=== PATIENT | male | born 1930 | race Caucasian/White ===

== ENCOUNTER 2018-05-03 11:06 | Emergency (ER) | payer MEDICARE ==
[~2018-05-03] VITALS: Ht 177.8 cm; Wt 95.3 kg
--- NOTE | 2018-05-03 11:35 | ED Cardiac General ---
History of Present Illness General Chief Complaint: Elevated BP Stated Complaint: BP 230/170 Nursing Triage Note: Pt arrived by private vehicle with a chief complaint of high blood pressure. Pt noticed that his blood pressure was high around 0600, then went to urgent care. Pt went to urgent care and they took his blood pressure and got 220/110. Pt took his blood pressure medication about one hour ago. At urgent care he complained of dizziness and head pressure. Pt stated that he is currently not in any pain. Source: patient, family Exam Limitations: no limitations History of Present Illness Date Seen by Provider: May 03, 2018 Time Seen by Provider: 11:24 87 y/o M with PMH of HTN presents with complaint of elevated BP. States he took his morning Lisinopril around 0800, at 0600 took BP with a wrist automatic home BP cuff that read high, went to urgent care, was told it was 220/110. He tells me he was asking urgent care if their are any symptoms that people can feel with elevated BP. Says he felt his heart pounding. Denies dizziness, though was told by urgent care sometimes people can have dizziness, headache and vision changes with elevated BP. Patient is currently asymptomatic. [place] that was "normal". Allergies and Home Medications Patient Home Medication List Home Medication List Reviewed: Yes Review of Systems Review of Systems Constitutional: No chills, No fever, No malaise, No weakness EENTM: No Blurred Vision, No Double Vision Respiratory: Denies Cough, Denies Orthopnea, Denies Shortness of Air, Denies SOA With Exertion Cardiovascular: Denies Chest Pain, Denies Edema, Denies Lightheadedness, Denies Palpitations, Denies Syncope Gastrointestinal: Denies Abdominal Pain, Denies Nausea, Denies Vomiting Genitourinary: Denies Flank Pain, Denies Hematuria Musculoskeletal: No back pain, No joint pain, No muscle pain Skin: No lesions, No rash Endocrine: Denies Excessive Sweating, Denies Flushing Past Omxswjl-Wukbzd-Yyecuv Hx Past Med/Social Hx: Reviewed Nursing Past Med/Soc Hx Patient Social History Recent Foreign Travel: No Contact w/Someone Who Travel: No Recent Infectious Disease Expo: No Physical Exam Vital Signs Vital Signs - First Documented 05/03/18 11:15 Temp 98.1 Pulse 68 Resp 18 B/P (MAP) 169/71 (103) Pulse Ox 95 O2 Delivery Room Air Capillary Refill : Less Than 3 Seconds Height, Weight, BMI Height: 5'10.00" Weight: 210lbs. 0oz. 95.595184ce; BMI Method:Stated General Appearance: No Apparent Distress, WD/WN HEENT: PERRL/EOMI, Normal ENT Inspection Neck: Full Range of Motion, Normal Inspection, Non Tender, Supple Respiratory: Chest Non Tender, Lungs Clear, Normal Breath Sounds, No Accessory Muscle Use, No Respiratory Distress Cardiovascular: Regular Rate, Rhythm, No Edema, No Gallop, No JVD, No Murmur, Normal Peripheral Pulses Gastrointestinal: Normal Bowel Sounds, No Organomegaly, No Pulsatile Mass, Non Tender, Soft Rectal: Deferred Extremity: Normal Capillary Refill, Normal Inspection, Normal Range of Motion, Non Tender, No Calf Tenderness, No Pedal Edema Neurologic/Psychiatric: Alert, Oriented x3, No Motor/Sensory Deficits, Normal 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 Recommend close follow up with PCP and Supervisor [employer] as scheduled. Departure Impression Primary Impression: Hypertension Disposition: 01 HOME, SELF-CARE Condition: Improved Departure-Patient Inst. Decision time for Depature: 11:36 Referrals: VENESSA HARRIS MD (PCP/Family) Primary Care Physician Patient Instructions: Malignant Hypertension (DC) Add. Discharge Instructions: All discharge instructions reviewed with patient and/or family. Voiced understanding. VALENTIN ART MD May 03, 2018 11:35
[2018-05-03 12:00] VITALS: BP 147/61
== END 2018-05-03 12:00 | disposition home or self-care (01) ==
LOC: ER FS 11:10
DX: I10 Essential (primary) hypertension (principal)
CPT/HCPCS: 99283

== ENCOUNTER 2018-05-24 12:52 | Emergency (ER) | payer MEDICARE ==
[~2018-05-24] VITALS: Ht 177.8 cm; Wt 95.3 kg
[2018-05-24] MEDS ORDERED: amLODIPine 5 MG (NORVASC) TAB PO ONE (13:15)
[2018-05-24 13:20] LABS: BASOPHILS % (AUTO) 1 % (0-10); EOSINOPHILS % (AUTO) 3 % (0-10); HEMATOCRIT 38 % (40-54); HEMOGLOBIN 12.8 G/DL (13.3-17.7); LYMPHOCYTES % (AUTO) 27 % (12-44); MEAN CORPUSCULAR HEMOGLOBIN 33 PG (25-34); MEAN CORPUSCULAR HGB CONC 34 G/DL (32-36); MEAN CORPUSCULAR VOLUME 96 FL (80-99); MEAN PLATELET VOLUME 9.1 FL (7.4-10.4); MONOCYTES % (AUTO) 13 % (0-12); NEUTROPHILS % (AUTO) 54 % (42-75); PLATELET COUNT 344 10^3/uL (130-400); RED CELL DISTRIBUTION WIDTH 12.9 % (10.0-14.5); WHITE BLOOD COUNT 8.3 10^3/uL (4.3-11.0)
[2018-05-24 13:21] LABS: BASOPHILS # (AUTO) 0.1 10^3/uL (0.0-0.1); EOSINOPHILS # (AUTO) 0.3 10^3/uL (0.0-0.3); LYMPHOCYTES # (AUTO) 2.3 X 10^3 (1.0-4.0); MONOCYTES # (AUTO) 1.1 X 10^3 (0.0-1.0); NEUTROPHILS # (AUTO) 4.5 X 10^3 (1.8-7.8)
--- NOTE | 2018-05-24 13:28 | ED Cardiac General ---
History of Present Illness General Chief Complaint: Cardiac/General Problems Stated Complaint: BP 244/199 Nursing Triage Note: ARRIVED VIA AMB TO ROOM 03. COMPLAINS OF HIGH BP AND HEADACHE SINCE HAVING HIS HEART CATH ON THURSDAY AT [facility]. Source: patient Exam Limitations: no limitations History of Present Illness Date Seen by Provider: May 24, 2018 Time Seen by Provider: 13:03 Initial Comments Here with report of high blood pressure and headache for the last few days. He had a heart catheter on Thursday at [facility] in [place]. No stenting. He had a heart catheter related to the fact that he's been having high blood pressure for the last month or so. Apparently was better but still continues. He has been placed on Ranexa 500 mg twice a day. Denies chest pain or weakness but does have mild headache. Blood pressure is improving since taking his blood pressure medicines but still in the range of 170s over 60s and 70s. Heart rate of 70. Denies nausea , vomiting, weakness or sweating. Timing/Duration: changing over time, other (several weeks) Severity: mild Location: other (mild headache) Activities at Onset: none Prior CP/Workup: cardiac cath, stress test Modifying Factors: improves with rest NTG SL UNDERGROUND DISTRIBUTION ENGINEER: No ASA po UNDERGROUND DISTRIBUTION ENGINEER: Yes Associated Systoms: No Chest Pain, No Cough, No Fever/Chills; Headaches; No Nausea/Vomiting, No Shortness of Air, No Weakness Allergies and Home Medications Allergies Coded Allergies: Sulfa (Sulfonamide Antibiotics) (Verified Allergy, Unknown, 05/24/18) Patient Home Medication List Home Medication List Reviewed: Yes Review of Systems Review of Systems Constitutional: see HPI; No chills, No fever EENTM: No Symptoms Reported Respiratory: Denies Cough, Denies Shortness of Air Cardiovascular: Denies Chest Pain, Denies Palpitations Gastrointestinal: No Symptoms Reported Musculoskeletal: no symptoms reported Skin: no symptoms reported Psychiatric/Neurological: See HPI; Denies Numbness, Denies Weakness All Other Systems Reviewed Negative Unless Noted: Yes Past Ylttltn-Ovmjbu-Cujztv Hx Past Med/Social Hx: Reviewed Nursing Past Med/Soc Hx Patient Social History Alcohol Use: Denies Use Recreational Drug Use: No Smoking Status: Never a Smoker Type Used: Cigarettes 2nd Hand Smoke Exposure: No Recent Foreign Travel: No Contact w/Someone Who Travel: No Recent Infectious Disease Expo: No Recent Hopitalizations: Yes Seasonal Allergies Seasonal Allergies: No Past Medical History Surgeries: Yes Eye Surgery, Gallbladder Respiratory: No Cardiac: Yes Hypertension Neurological: No Sexually Transmitted Disease: No HIV/AIDS: No Genitourinary: No Gastrointestinal: No Abdominal Hernia Musculoskeletal: No Endocrine: No Hypothyroidsim HEENT: No Cancer: No Psychosocial: No Integumentary: No Blood Disorders: No Family Medical History Reviewed Nursing Family Hx Physical Exam Vital Signs Vital Signs - First Documented 05/24/18 12:57 Temp 98.2 Pulse 70 Resp 16 B/P (MAP) 172/78 (109) Pulse Ox 95 O2 Delivery Room Air Capillary Refill : Less Than 3 Seconds Height, Weight, BMI Height: 5'10.00" Weight: 210lbs. 0oz. 95.348376tv; BMI Method:Stated General Appearance: No Apparent Distress, WD/WN HEENT: PERRL/EOMI, Pharynx Normal Neck: Non Tender, Supple Respiratory: Lungs Clear, Normal Breath Sounds Cardiovascular: Regular Rate, Rhythm, No Murmur Gastrointestinal: Non Tender, Soft Extremity: Normal Range of Motion, Non Tender Neurologic/Psychiatric: Alert, Oriented x3 Skin: Normal Color, Warm/Dry Progress/Results/Core Measures Results/Orders Lab Results Laboratory Tests Test 05/24/18 13:12 05/24/18 14:56 Range/Units White Blood Count 8.3 4.3-11.0 10^3/uL Red Blood Count 3.93 L 4.35-5.85 10^6/uL Hemoglobin 12.8 L 13.3-17.7 G/DL Hematocrit 38 L 40-54 % Mean Corpuscular Volume 96 80-99 FL Mean Corpuscular Hemoglobin 33 25-34 PG Mean Corpuscular Hemoglobin Concent 34 32-36 G/DL Red Cell Distribution Width 12.9 10.0-14.5 % Platelet Count 344 130-400 10^3/uL Mean Platelet Volume 9.1 7.4-10.4 FL Neutrophils (%) (Auto) 54 42-75 % Lymphocytes (%) (Auto) 27 12-44 % Monocytes (%) (Auto) 13 H 0-12 % Eosinophils (%) (Auto) 3 0-10 % Basophils (%) (Auto) 1 0-10 % Neutrophils # (Auto) 4.5 1.8-7.8 X 10^3 Lymphocytes # (Auto) 2.3 1.0-4.0 X 10^3 Monocytes # (Auto) 1.1 H 0.0-1.0 X 10^3 Eosinophils # (Auto) 0.3 0.0-0.3 10^3/uL Basophils # (Auto) 0.1 0.0-0.1 10^3/uL Prothrombin Time 13.4 12.2-14.7 SEC INR Comment 1.0 0.8-1.4 Activated Partial Thromboplast Time 29 24-35 SEC Sodium Level 136 135-145 MMOL/L Potassium Level 4.3 3.6-5.0 MMOL/L Chloride Level 101 98-107 MMOL/L Carbon Dioxide Level 23 21-32 MMOL/L Anion Gap 12 5-14 MMOL/L Blood Urea Nitrogen 11 7-18 MG/DL Creatinine 1.16 0.60-1.30 MG/DL Estimat Glomerular Filtration Rate 60 BUN/Creatinine Ratio 9 Glucose Level 107 H 70-105 MG/DL Calcium Level 9.3 8.5-10.1 MG/DL Corrected Calcium 9.1 8.5-10.1 MG/DL Magnesium Level 1.9 1.8-2.4 MG/DL Total Bilirubin 0.5 0.1-1.0 MG/DL Aspartate Amino Transf (AST/SGOT) 19 5-34 U/L Alanine Aminotransferase (ALT/SGPT) 13 0-55 U/L Alkaline Phosphatase 52 40-136 U/L Troponin T 25 H 23 H <=15 NG/L Total Protein 7.3 6.4-8.2 GM/DL Albumin 4.2 3.2-4.5 GM/DL My Orders Orders - JOSE ELIAS MIRANDA MD Amlodipine Tablet (Norvasc Tablet) (05/24/18 13:15) Cbc With Automated Diff (05/24/18 13:11) Magnesium (05/24/18 13:11) Chest 1 View Ap/Pa Only (05/24/18 13:11) Ekg Tracing (05/24/18 13:11) Comprehensive Metabolic Panel (05/24/18 13:11) Protime With Inr (05/24/18 13:11) Partial Thromboplastin Time (05/24/18 13:11) Monitor-Rhythm Ecg Trace Only (05/24/18 13:11) Lipid Panel (05/25/18 06:00) Saline Lock/Iv-Start (05/24/18 13:11) Troponin T (05/24/18 13:11) Myoglobin Serum (05/24/18 13:12) Troponin T (05/24/18 14:53) Medications Given in ED Current Medications Medications Dose Ordered Sig/Mary Route Start Time Stop Time Status Last Admin Dose Admin Amlodipine Besylate 5 mg ONCE ONCE PO 05/24/18 13:15 05/24/18 13:16 DC 05/24/18 13:23 5 MG Vital Signs/I&O 05/24/18 12:57 Temp 98.2 Pulse 70 Resp 16 B/P (MAP) 172/78 (109) Pulse Ox 95 O2 Delivery Room Air Blood Pressure Mean: 109 Progress Progress Note : Progress Note Seen and evaluated. IV, labs, EKG and chest x-ray ordered. Amlodipine 5 mg by mouth ordered. Monitor patient. 1500: Blood pressure is improved to 160s over 60s to 170s over 60s with heart rate in the 60s. I did discuss the case with Dr. 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 Apparently he had heart catheter due to failed stress test and not blood pressure. We did discuss his blood pressure medicines. He is recommending that we increase the lisinopril to 40 mg daily and add clonidine when necessary. We will repeat patient's troponin and monitor for improvement. He is currently symptom and chest pain-free. 1525: We will give clonidine 0.1 mg by mouth now and monitor. Initial ECG Impression Date: May 24, 2018 Initial ECG Impression Time: 13:00 Initial ECG Rate: 71 Initial ECG Rhythm: Normal Sinus Initial ECG Comparisson: No Previous ECG Available Comment Sinus rhythm with normal axis. No evidence of ST elevation ID. No previous available for comparison. Interpreted by me. Diagnostic Imaging Diagonstic Imaging: Xray Plain Films/CT/US/NM/MRI: chest Comments [facility]. [place], [place] NAME: VALENTINJUSTO MED REC#: [id number] PT STATUS: REG ER : 1930 PHYSICIAN: JOSE ELIAS MIRANDA MD ADMIT DATE: 05/24/18/ER FS Draft Date of Exam:05/24/18 CHEST 1 VIEW AP/PA ONLY INDICATION: Hypertension. TECHNIQUE: Single-view chest at 12:19 p.m. CORRELATION STUDY: None. FINDINGS: Large portion of the upper chest is obscured by the patient's head. Heart size is enlarged. Vasculature is within normal limits. Likely tortuous course of thoracic aorta. The visualized lung green appear relatively clear without significant infiltrate. IMPRESSION: 1. Cardiac enlargement without failure. No definitive consolidating infiltrate. Superior chest anatomy obscured by the patient's head. Dictated on workstation # [id number] Dict: 05/24/18 1323 Trans: 05/24/18 1332 [id number] Interpreted by: MARA ORTEGA DO Electronically signed by: Departure Impression Primary Impression: Uncontrolled hypertension Disposition: HOME, SELF-CARE Condition: Improved Departure-Patient Inst. Decision time for Depature: 15:50 Referrals: VENESSA HARRIS MD (PCP/Family) Primary Care Physician Patient Instructions: High Blood Pressure (DC) Add. Discharge Instructions: All discharge instructions reviewed with patient and/or family. Voiced understanding. You should increase her lisinopril to 40 mg daily (4 of the 10 mg tablets once a day). You may take the clonidine 0.1 mg one every 8 hours as needed for persistent blood pressure problems with your systolic number (top number) of 170 or higher. If you do have to take your clonidine, call Dr. Hammonds's office for appointment within the next week. Follow-up with your doctor for recheck and further evaluation within the next week. Return for persistent blood pressure greater than 200 systolic, weakness, chest pain, breathing problems, sweating, nausea or vomiting or other concerns as needed. Continue other medicines as previously prescribed. Scripts Clonidine HCl (Clonidine HCl) 0.1 Mg Tablet 0.1 MG PO Q12H PRN for BLOOD PRESSURE, #15 TAB 0 Refills Prov: JOSE ELIAS MIRANDA MD 05/24/18 JOSE ELIAS MIRANDA MD May 24, 2018 13:28
--- NOTE | 2018-05-24 13:32 | Diagnostic Imaging Report ---
INDICATION: Hypertension. TECHNIQUE: Single-view chest at 12:19 p.m. CORRELATION STUDY: None. FINDINGS: Large portion of the upper chest is obscured by the patient's head. Heart size is enlarged. Vasculature is within normal limits. Likely tortuous course of thoracic aorta. The visualized lung green appear relatively clear without significant infiltrate. IMPRESSION: 1. Cardiac enlargement without failure. No definitive consolidating infiltrate. Superior chest anatomy obscured by the patient's head. Dictated by: Dictated on workstation # [id number]
[2018-05-24 13:40] LABS: POTASSIUM 4.3 MMOL/L (3.6-5.0)
[2018-05-24 13:41] LABS: ALBUMIN 4.2 GM/DL (3.2-4.5); BILIRUBIN,TOTAL 0.5 MG/DL (0.1-1.0); CALCIUM 9.3 MG/DL (8.5-10.1); CREATININE SERUM 1.16 MG/DL (0.60-1.30); MAGNESIUM 1.9 MG/DL (1.8-2.4); TOTAL PROTEIN 7.3 GM/DL (6.4-8.2)
--- NOTE | 2018-05-24 13:46 | NUR ---
IN TO TALK TO PT AT THIS TIME.
[2018-05-24 13:50] LABS: PROTHROMBIN TIME PATIENT 13.4 SEC (12.2-14.7)
[2018-05-24] MEDS ORDERED: RANO500T5 (13:56)
[2018-05-24] MEDS ORDERED: LISI10TA2 (13:56)
[2018-05-24] MEDS ORDERED: ISM60TCR (13:56)
[2018-05-24] MEDS ORDERED: METO-333 (13:56)
[2018-05-24] MEDS ORDERED: TRAZ-189 (13:56)
[2018-05-24] MEDS ORDERED: POTA10TA10 (13:56)
[2018-05-24] MEDS ORDERED: LEVO50TA6 (13:56)
[2018-05-24] MEDS ORDERED: CHOL4PAC2 (13:56)
--- NOTE | 2018-05-24 14:13 | NUR ---
RESTING IN BED ET DENIES NEEDS AT THIS TIME.
[2018-05-24] MEDS ORDERED: cloNIDine 0.1 MG (CATAPRES) TAB PO ONE (15:30)
[2018-05-24] MEDS ORDERED: CLON0.1T PO (15:34)
[2018-05-24 16:21] VITALS: BP 187/74
== END 2018-05-24 16:21 | disposition home or self-care (01) ==
LOC: EDUNIT# 12:52 → ER FS 12:54
DX: I10 Essential (primary) hypertension (principal); E03.9 Hypothyroidism, unspecified; Z87.19 Personal history of other diseases of the digestive system; Z88.2 Allergy status to sulfonamides; Z98.890 Other specified postprocedural states
CPT/HCPCS: 36415; 71045; 80053; 83735; 83874; 84484; 85025; 85610; 85730; 93005; 93041

== ENCOUNTER → 2019-02-03 | Outpatient (CLI) | payer MEDICARE ==
[~2019-02-03] MED LIST: CHOL4PAC2; CLON0.1T PO; ISM60TCR; LEVO50TA6; LISI10TA2; METO-333; POTA10TA10; RANO500T5; TRAZ-222
--- NOTE | 2019-02-03 10:31 | Diagnostic Imaging Report ---
PROCEDURE: CT urinary tract, rule out kidney stone. TECHNIQUE: Multiple contiguous axial images were obtained through the abdomen and pelvis without the use of intravenous contrast. Auto Exposure Controls were utilized during the CT exam to meet ALARA standards for radiation dose reduction. INDICATION: Right flank pain. Hematuria. History of kidney stones. COMPARISON: None FINDINGS: Included portions of lung bases show emphysematous changes within both lung bases. Note is also made of moderate calcified coronary and aortic atherosclerosis. CT ABDOMEN: There is a 6 mm calculus within the proximal right ureter near the UPJ. As a result, there is mild proximal hydronephrosis. Multiple additional nonobstructive bilateral renal calculi are also noted, some of which may be vascular in nature. Hypodense bilateral renal cysts are also present. The adrenal glands, spleen, pancreas, and liver have an unremarkable noncontrast CT appearance. There is no loculated fluid collection, free fluid, nor free air within the abdomen. No abnormal mesenteric or retroperitoneal adenopathy is seen. Normal appendix cannot be adequately identified, but there is no pericecal inflammation. There is colonic diverticulosis, but no CT evidence of acute diverticulitis. Small bowel loops are nondistended. There is moderate diffuse calcified aortic and arterial atherosclerosis. Osseous structures show no acute abnormalities. CT PELVIS: Urinary bladder is unopacified. No calculi are seen within urinary bladder. Bilateral fat-containing inguinal hernias are noted. There is no loculated fluid collection, free fluid, no free air within the pelvis. No abnormal lymph nodes are identified. Osseous structures show no acute abnormalities. IMPRESSION: 1. 6 mm calculus within the proximal right ureter resulting in mild proximal hydronephrosis. 2. Multiple additional bilateral nonobstructive renal calculi. 3. Colonic diverticulosis, but no CT evidence of acute diverticulitis. 4. Diffuse calcified aortic, coronary and arterial atherosclerosis. Dictated by: Dictated on workstation # [id number]
== END ==
LOC: RAD FS 09:31
PROVIDERS: ATTEND Nurse Practitioner Family
DX: N13.2 Hydronephrosis with renal and ureteral calculous obstruction (principal); K57.30 Diverticulosis of large intestine without perforation or abscess without bleeding; I71.4 Abdominal aortic aneurysm, without rupture; I25.10 Atherosclerotic heart disease of native coronary artery without angina pectoris
CPT/HCPCS: 74176

== ENCOUNTER → 2019-03-04 | Outpatient (CLI) | payer MEDICARE ==
--- NOTE | 2019-03-04 09:55 | Diagnostic Imaging Report ---
INDICATION: Ureteral calculus. Patient underwent lithotripsy 10 days ago. TIME OF EXAM: 9:02 a.m. COMPARISON: Correlation is made with CT study from 02/03/2019. FINDINGS: Surgical clips in the gallbladder fossa are noted. Patient has a right-sided double-J nephroureteral stent. There are multiple calcific densities overlying bilateral renal shadows. No definite calcific densities along the course of the stent are identified. Bowel gas pattern is unremarkable. IMPRESSION: Bilateral renal calculi. There is a right-sided double-J nephroureteral stent. No definite calculi along the course of the stent are identified. Dictated by: Dictated on workstation # [id number]
== END ==
LOC: RAD FS 08:54
PROVIDERS: ATTEND Urology
DX: N20.0 Calculus of kidney (principal)
CPT/HCPCS: 74018

== ENCOUNTER 2019-03-16 07:52 | Emergency (ER) | payer MEDICARE ==
[~2019-03-16] VITALS: Ht 170 cm; Wt 94.7 kg
[~2019-03-16 07:52] MED LIST changes: -TRAZ-222; +TRZ50T
[2019-03-16 08:14] LABS: HEMATOCRIT 40 % (40-54); HEMOGLOBIN 13.5 G/DL (13.3-17.7); MEAN CORPUSCULAR HEMOGLOBIN 33 PG (25-34); MEAN CORPUSCULAR HGB CONC 34 G/DL (32-36); MEAN CORPUSCULAR VOLUME 99 FL (80-99); MEAN PLATELET VOLUME 9.2 FL (7.4-10.4); PLATELET COUNT 295 10^3/uL (130-400); RED CELL DISTRIBUTION WIDTH 12.3 % (10.0-14.5); WHITE BLOOD COUNT 8.4 10^3/uL (4.3-11.0)
[2019-03-16 08:15] LABS: BASOPHILS # (AUTO) 0.1 10^3/uL (0.0-0.1); BASOPHILS % (AUTO) 1 % (0-10); EOSINOPHILS # (AUTO) 0.2 10^3/uL (0.0-0.3); EOSINOPHILS % (AUTO) 2 % (0-10); LYMPHOCYTES # (AUTO) 2.4 X 10^3 (1.0-4.0); LYMPHOCYTES % (AUTO) 29 % (12-44); MONOCYTES # (AUTO) 1.2 X 10^3 (0.0-1.0); MONOCYTES % (AUTO) 15 % (0-12); NEUTROPHILS # (AUTO) 4.4 X 10^3 (1.8-7.8); NEUTROPHILS % (AUTO) 53 % (42-75)
[2019-03-16] MEDS ORDERED: NS (IVPB) 100 ML ONE (08:17)
[2019-03-16] MEDS ORDERED: DILTIAZEM 125 MG/25 ML IV (CARDIZEM) IV ONE (08:17)
[2019-03-16] MEDS ORDERED: dilTIAZem DRIP PRE-MIX 125 ML IV SCH (08:30)
[2019-03-16] MEDS ORDERED: DILTIAZEM 25 MG/5 ML INJ (CARDIZEM) VIAL IVP ONE (08:30)
[2019-03-16] MEDS ORDERED: ASPIRIN 81 MG CHEW (CHILDREN'S ASA) PO ONE (08:30)
[2019-03-16 08:37] LABS: CARBON DIOXIDE 22 MMOL/L (21-32); CHLORIDE 102 MMOL/L (98-107); POTASSIUM 4.5 MMOL/L (3.6-5.0); SODIUM 137 MMOL/L (135-145)
[2019-03-16 08:38] LABS: ALANINE AMINOTRANSFERASE 13 U/L (0-55); ALBUMIN 4.3 GM/DL (3.2-4.5); ALKALINE PHOSPHATASE 54 U/L (40-136); BILIRUBIN,TOTAL 0.4 MG/DL (0.1-1.0); BUN/CREATININE RATIO 14; CALCIUM 9.4 MG/DL (8.5-10.1); CREATININE SERUM 1.48 MG/DL (0.60-1.30); GFR ESTIMATED 45; GLUCOSE 132 MG/DL (70-105); TOTAL PROTEIN 7.6 GM/DL (6.4-8.2)
--- NOTE | 2019-03-16 08:38 | ED Cardiac General ---
History of Present Illness General Chief Complaint: Cardiac/General Problems Stated Complaint: CHEST PAIN Nursing Triage Note: PT WOKE UP WITH SOME CHEST DISCOMFORT ALL ACROSS HIS CHEST. TOOK 2 NITRO PRIOR TO COMING TO ER. REPORTS HE FEELS LIKE HE HAS PNEUMONIA. History of Present Illness Date Seen by Provider: Mar 16, 2019 Time Seen by Provider: 08:33 Initial Comments 88-year-old male has history of hypertension he apparently failed a stress test and had a heart cath at [facility] in [place] last spring which he tells me showed no significant abnormalities he doesn't seem to be aware of any further cardiac medical history he has no idea what medications he is taking he says he was taken off aspirin a few months back monitor show he is in atrial rib with a rate of 130's - 140 he says he's never heard of atrial fib but another family member here says he's had it before he apparently is not on any other blood thinners patient says he was awakened at around 4 AM perhaps with a discomfort across his upper chest he denies radiation of pain nausea vomiting shortness of breath upon arrival here and lying down he has no pain he may have noticed his heart racing he has not had syncope or fallen Allergies and Home Medications Allergies Coded Allergies: Sulfa (Sulfonamide Antibiotics) (Verified Allergy, Unknown, 05/24/18) Home Medications Clonidine HCl 0.1 Mg Tablet, 0.1 MG PO Q12H PRN for BLOOD PRESSURE Prescribed by: JOSE ELIAS MIRANDA on 05/24/18 1534 Patient Home Medication List Home Medication List Reviewed: Yes Review of Systems Review of Systems Constitutional: dizziness EENTM: No Symptoms Reported Respiratory: No Symptoms Reported Cardiovascular: Chest Pain, Palpitations; Denies Syncope Gastrointestinal: No Symptoms Reported Genitourinary: No Symptoms Reported Musculoskeletal: no symptoms reported Psychiatric/Neurological: No Symptoms Reported Endocrine: No Symptoms Reported Hematologic/Lymphatic: No Symptoms Reported Past Ocombqa-Xiihyv-Pbkvvu Hx Patient Social History Alcohol Use: Denies Use Recreational Drug Use: No Smoking Status: Former Smoker Type Used: Cigarettes 2nd Hand Smoke Exposure: No Recent Foreign Travel: No Contact w/Someone Who Travel: No Recent Infectious Disease Expo: No Recent Hopitalizations: Yes Physical Abuse: No Sexual Abuse: No Mistreated: No Fear: No Seasonal Allergies Seasonal Allergies: No Past Medical History Surgeries: Yes Eye Surgery, Gallbladder Respiratory: No Cardiac: Yes Hypertension Neurological: No Sexually Transmitted Disease: No HIV/AIDS: No Genitourinary: No Gastrointestinal: No Abdominal Hernia Musculoskeletal: No Endocrine: No Hypothyroidsim HEENT: No Cancer: No Psychosocial: No Integumentary: No Blood Disorders: No Physical Exam Vital Signs Vital Signs - First Documented 03/16/19 08:13 Temp 35.6 Pulse 114 Resp 18 B/P (MAP) 140/96 (111) Pulse Ox 96 O2 Delivery Room Air Capillary Refill : Less Than 3 Seconds Height, Weight, BMI Height: 5'10.00" Weight: 210lbs. 0oz. [id number]; 32.00 BMI Method:Stated General Appearance: No Apparent Distress HEENT: PERRL/EOMI, Pharynx Normal, Moist Mucous Membranes Neck: Supple Respiratory: Lungs Clear, Normal Breath Sounds Cardiovascular: Irregularly Irregular, Tachycardia Gastrointestinal: Normal Bowel Sounds, Soft Extremity: No Pedal Edema Neurologic/Psychiatric: Alert, Oriented x3 Skin: Warm/Dry Progress/Results/Core Measures Results/Orders Lab Results Laboratory Tests Test 03/16/19 08:00 Range/Units White Blood Count 8.4 4.3-11.0 10^3/uL Red Blood Count 4.03 L 4.35-5.85 10^6/uL Hemoglobin 13.5 13.3-17.7 G/DL Hematocrit 40 40-54 % Mean Corpuscular Volume 99 80-99 FL Mean Corpuscular Hemoglobin 33 25-34 PG Mean Corpuscular Hemoglobin Concent 34 32-36 G/DL Red Cell Distribution Width 12.3 10.0-14.5 % Platelet Count 295 130-400 10^3/uL Mean Platelet Volume 9.2 7.4-10.4 FL Neutrophils (%) (Auto) 53 42-75 % Lymphocytes (%) (Auto) 29 12-44 % Monocytes (%) (Auto) 15 H 0-12 % Eosinophils (%) (Auto) 2 0-10 % Basophils (%) (Auto) 1 0-10 % Neutrophils # (Auto) 4.4 1.8-7.8 X 10^3 Lymphocytes # (Auto) 2.4 1.0-4.0 X 10^3 Monocytes # (Auto) 1.2 H 0.0-1.0 X 10^3 Eosinophils # (Auto) 0.2 0.0-0.3 10^3/uL Basophils # (Auto) 0.1 0.0-0.1 10^3/uL Prothrombin Time 12.6 12.2-14.7 SEC INR Comment 0.9 0.8-1.4 Sodium Level 137 135-145 MMOL/L Potassium Level 4.5 3.6-5.0 MMOL/L Chloride Level 102 98-107 MMOL/L Carbon Dioxide Level 22 21-32 MMOL/L Anion Gap 13 5-14 MMOL/L Blood Urea Nitrogen 20 H 7-18 MG/DL Creatinine 1.48 H 0.60-1.30 MG/DL Estimat Glomerular Filtration Rate 45 BUN/Creatinine Ratio 14 Glucose Level 132 H 70-105 MG/DL Calcium Level 9.4 8.5-10.1 MG/DL Corrected Calcium 9.2 8.5-10.1 MG/DL Total Bilirubin 0.4 0.1-1.0 MG/DL Aspartate Amino Transf (AST/SGOT) 19 5-34 U/L Alanine Aminotransferase (ALT/SGPT) 13 0-55 U/L Alkaline Phosphatase 54 40-136 U/L Troponin I < 0.30 <0.30 NG/ML Total Protein 7.6 6.4-8.2 GM/DL Albumin 4.3 3.2-4.5 GM/DL My Orders Orders - RIKY HUNT MD Ekg Tracing (03/16/19 08:05) Iv Heplock-Insert (Order) (03/16/19 08:05) Cbc With Automated Diff (03/16/19 08:05) Comprehensive Metabolic Panel (03/16/19 08:05) Troponin I Fs (03/16/19 08:05) Manager Travel (03/16/19 08:05) Chest 1 View Ap/Pa Only (03/16/19 08:05) Aspirin Chewable Tablet (Baby Aspirin Ch (03/16/19 08:30) Diltiazem Injection (Cardizem Injection) (03/16/19 08:30) Diltiazem Drip Pre-Mix (Diltiazem Drip P (03/16/19 08:30) Protime With Inr (03/16/19 08:19) Diltiazem Iv For Drip (Cardizem Iv For D (03/16/19 08:17) Ns (Ivpb) (Sodium Chloride 0.9% Ivpb Bag (03/16/19 08:17) Ns (Ivpb) (Sodium Chloride 0.9%) (03/16/19 09:04) Ns (Ivpb) (Sodium Chloride 0.9%) (03/16/19 09:15) Medications Given in ED Current Medications Medications Dose Ordered Sig/Mary Route Start Time Stop Time Status Last Admin Dose Admin Aspirin 324 mg ONCE ONCE PO 03/16/19 08:30 03/16/19 08:31 DC 03/16/19 08:27 324 MG Diltiazem HCl 10 mg ONCE ONCE IVP 03/16/19 08:30 03/16/19 08:31 DC 03/16/19 08:27 10 MG Sodium Chloride 250 ml @ 999 mls/hr Q16M ONCE IV 03/16/19 09:15 03/16/19 09:30 03/16/19 09:13 999 MLS/HR Vital Signs/I&O 03/16/19 08:13 Temp 35.6 Pulse 114 Resp 18 B/P (MAP) 140/96 (111) Pulse Ox 96 O2 Delivery Room Air Blood Pressure Mean: 111 Progress Progress Note : Progress Note pt given Cardizem 10 mg IV and then a drip was started heart rate responded well but then blood pressure dipped to 90 systolic (pt denied sx's) so drip was DC'd and 250 normal saline fluid bolus given most recent rate is 90 and blood pressure 101/59 and pt asymptomatic Patient and family specifically requests transfer [facility] his librarian helper Dr. Hammonds practices there Hemoglobins 13.5 white count 8400 CMP shows creatinine 1.48 troponin is negative INR 0.9 X-ray is read as "interval development of mild bibasilar infiltrates, stable cardiomegaly with no significant pulmonary vascular congestion" Patient has had no fever or cough call made to [facility] patient has been accepted by Dr. Castañeda to a stepdown unit Comment EKG shows atrial fib rate 1:[address] changes Departure Impression Primary Impression: Atrial fibrillation Qualified Codes: I48.0 - Paroxysmal atrial fibrillation Disposition: XF SHT-TRM HOSP Condition: Stable Transfer Transfer Reason: Patient preference (patient and family request transfer to [facility]) Transfer Facility: See progress note Method of Transfer: EMS Departure-Patient Inst. Referrals: SELF,VENESSA LÓPEZ (PCP/Family) Primary Care Physician RIKY HUNT MD Mar 16, 2019 08:38
--- NOTE | 2019-03-16 08:47 | Diagnostic Imaging Report ---
CLINICAL INDICATION: Patient with chest discomfort. Symptoms started this morning. EXAM: Portable chest x-ray upright view. COMPARISONS: Portable chest x-ray dated 05/24/2018. FINDINGS: Lungs/pleura: There is interval development of mild bibasilar patchy airspace opacities which may represent mild lung infiltrates. The remainder of the lungs are clear and stable. There is no pneumothorax. There is no pleural effusion. Mediastinum: Unremarkable. Pulmonary vasculature: Unremarkable. Heart: Stable mild cardiomegaly. Bones/extrathoracic soft tissue: There are hypertrophic spurs involving the thoracic spine. IMPRESSION: 1: There is interval development of mild bibasilar infiltrates. 2: Stable cardiomegaly with no significant pulmonary vascular congestion. Dictated by: Dictated on workstation # [id number]
[2019-03-16 09:03] LABS: INR 0.9 (0.8-1.4); PROTHROMBIN TIME PATIENT 12.6 SEC (12.2-14.7)
[2019-03-16] MEDS ORDERED: NS (IVPB) 250 ML ONE (09:04)
[2019-03-16] MEDS ORDERED: NS (IVPB) 250 ML IV ONE (09:15)
[2019-03-16 09:39] VITALS: BP 116/61
== END 2019-03-16 09:52 | disposition short-term general hospital (02) ==
LOC: EDUNIT# 07:52 → ER FS 07:53
DX: I48.91 Unspecified atrial fibrillation (principal); I10 Essential (primary) hypertension; E03.9 Hypothyroidism, unspecified; Z88.2 Allergy status to sulfonamides; Z87.891 Personal history of nicotine dependence
CPT/HCPCS: 36415; 71045; 80053; 84484; 85025; 85610; 93005

== ENCOUNTER → 2019-09-02 | Outpatient (CLI) | payer MEDICARE ==
--- NOTE | 2019-09-02 10:57 | Diagnostic Imaging Report ---
INDICATION: Ureteral calculus. TIME OF EXAM: 10:30 AM Comparison is made with prior abdominal radiograph from 03/04/2019. FINDINGS: A right-sided double-J nephroureteral stent has been removed. Calcific densities overlie both renal shadows, similar to prior. No definite calculi along the course of the ureters is seen. There are surgical clips gallbladder fossa. Bowel gas pattern is unremarkable. IMPRESSION: Bilateral renal calculi. The right-sided stent has been removed. No definite ureteral calculi are detected. Dictated by: Dictated on workstation # [id number]
== END ==
LOC: RAD FS 10:21
PROVIDERS: ATTEND Urology
DX: N20.2 Calculus of kidney with calculus of ureter (principal)
CPT/HCPCS: 74018

== ENCOUNTER → 2021-01-31 | Outpatient (CLI) | payer MEDICARE ==
[~2021-01-31] MED LIST changes: +CLN.1T PO; -CLON0.1T PO; -ISM60TCR; +ISOS60TA63; -LISI10TA2; +LISI10TA25; -RANO500T5; +RANO500T6
[2021-01-31 12:24] LABS: BILIRUBIN,URINE NEGATIVE (NEGATIVE); CLARITY,URINE CLEAR; COLOR,URINE YELLOW; GLUCOSE, URINE (UA) NEGATIVE (NEGATIVE); KETONES,URINE NEGATIVE (NEGATIVE); LEUKOCYTE ESTERASE ,URINE NEGATIVE (NEGATIVE); NITRITE,URINE NEGATIVE (NEGATIVE); PH,URINE 5.5 (5-9); PROTEIN,URINE NEGATIVE (NEGATIVE)
[2021-01-31 12:33] LABS: HEMATOCRIT 30 % (40-54); MEAN CORPUSCULAR HEMOGLOBIN 32 pg (25-34); MEAN CORPUSCULAR VOLUME 96 fL (80-99); WHITE BLOOD COUNT 8.3 10^3/uL (4.3-11.0)
[2021-01-31 12:34] LABS: BASOPHILS % (AUTO) 1 % (0-10); EOSINOPHILS % (AUTO) 2 % (0-10); LYMPHOCYTES % (AUTO) 24 % (12-44); MEAN CORPUSCULAR HGB CONC 34 g/dL (32-36); MEAN PLATELET VOLUME 9.4 fL (9.0-12.2); MONOCYTES # (AUTO) 1.2 X 10^3 (0.0-1.0); MONOCYTES % (AUTO) 14 % (0-12); NEUTROPHILS # (AUTO) 4.8 X 10^3 (1.8-7.8); NEUTROPHILS % (AUTO) 58 % (42-75); PLATELET COUNT 359 10^3/uL (130-400)
[2021-01-31 12:35] LABS: BASOPHILS # (AUTO) 0.1 10^3/uL (0.0-0.1); EOSINOPHILS # (AUTO) 0.2 10^3/uL (0.0-0.3)
[2021-01-31 12:36] LABS: BACTERIA,URINE NEGATIVE /HPF; RBC,URINE RARE /HPF; SQUAMOUS EPITHELIAL CELL,UR RARE /HPF; WBC,URINE RARE /HPF
[2021-01-31 16:27] LABS: BILIRUBIN,TOTAL 0.4 MG/DL (0.1-1.0); CALCIUM 8.6 MG/DL (8.5-10.1); CREATININE SERUM 1.79 MG/DL (0.60-1.30)
[2021-01-31 16:28] LABS: ALBUMIN 4.2 GM/DL (3.2-4.5); POTASSIUM 5.6 MMOL/L (3.6-5.0); TOTAL PROTEIN 6.9 GM/DL (6.4-8.2)
[2021-01-31 16:30] LABS: TSH (THYROID ANALYZER) 2.18 UIU/ML (0.35-4.94)
== END ==
LOC: IHC 11:54
PROVIDERS: ATTEND Family Medicine
DX: E03.9 Hypothyroidism, unspecified (principal); N18.30 Chronic kidney disease, stage 3 unspecified; D51.9 Vitamin B12 deficiency anemia, unspecified
CPT/HCPCS: 80053; 81000; 84443; 85025

== ENCOUNTER 2021-02-18 10:34 | Emergency (ER) | payer MEDICARE ==
[~2021-02-18] VITALS: Ht 182.9 cm; Wt 96.2 kg
--- NOTE | 2021-02-18 10:58 | ED GI ---
General Chief Complaint: Rect Problems Stated Complaint: BLOOD IN STOOL,VOMITING History of Present Illness Date Seen by Provider: Feb 18, 2021 Time Seen by Provider: 10:58 Initial Comments 89-year-old male sent in by his home health care nurse for evaluation. Patient reports he is here because he had a little bit of diarrhea yesterday and it was a little dark and wanted to be checked out. That he has chronic shortness of breath and he has some continued shortness of breath the last day or 2 but no re al increase in the shortness of breath. That may be coughed up a little bit of reddish tinged phlegm but none today. Patient symptoms very vague. Patient told the nurse that he was only here because the home health care wanted him checked out. Patient does have a colonoscopy scheduled in February in [place]. No reports of any gross blood per rectum. He denies any abdominal pain or vomiting. No reports of fevers chills or generalized malaise. Allergies and Home Medications Allergies Coded Allergies: Sulfa (Sulfonamide Antibiotics) (Verified Allergy, Unknown, 05/24/18) Patient Home Medication List Home Medication List Reviewed: Yes Cholestyramine (with Sugar) (Cholestyramine Packet) 4 Gm Powd.pack, (Reported) Entered as Reported by: BABATUNDE MORRELL on 05/24/18 1356 Clonidine HCl (Clonidine HCl) 0.1 Mg Tablet, 0.1 MG PO Q12H PRN for BLOOD PRESSURE Prescribed by: JOSE ELIAS MIRANDA on 05/24/18 1534 Isosorbide Mononitrate (Isosorbide Mononitrate ER) 60 Mg Tab, (Reported) Entered as Reported by: BABATUNDE MORRELL on 05/24/18 1356 Levothyroxine Sodium (Levothyroxine Sodium) 50 Mcg Tablet, (Reported) Entered as Reported by: BABATUNDE MORRELL on 05/24/18 1356 Lisinopril (Lisinopril) 10 Mg Tablet, (Reported) Entered as Reported by: BABATUNDE MORRELL on 05/24/18 1356 Metoprolol Tartrate (Metoprolol Tartrate) 25 Mg Tablet, (Reported) Entered as Reported by: BABATUNDE MORRELL on 05/24/18 1356 Potassium Chloride (Potassium Chloride) 10 Meq Tablet.er, (Reported) Entered as Reported by: BABATUNDE MORRELL on 05/24/18 1356 Ranolazine (Ranolazine ER) 500 Mg Tab.er.12h, (Reported) Entered as Reported by: BABATUNDE MORRELL on 05/24/18 1356 Trazodone HCl (Trazodone HCl) 50 Mg Tablet, (Reported) Entered as Reported by: BABATUNDE MORRELL on 05/24/18 1356 Review of Systems Review of Systems Constitutional: No chills, No fever EENTM: No Symptoms Reported Respiratory: See HPI Cardiovascular: No Symptoms Reported Gastrointestinal: See HPI Genitourinary: No Symptoms Reported Musculoskeletal: no symptoms reported Skin: no symptoms reported Psychiatric/Neurological: No Symptoms Reported Endocrine: No Symptoms Reported Hematologic/Lymphatic: No Symptoms Reported Past Cpimeqx-Ryyrzl-Gpsewv Hx Patient Social History Tobacco Use?: No Smoking Status: Never a Smoker Smokeless Tobacco Frequency: Never a User Use of E-Cig and/or Vaping dev: No Use of E-Cig and/or Vaping Ori: Never a User Substance use?: No Alcohol Use?: No Pt feels they are or have been: No Immunizations Up To Date First/Initial COVID19 Vaccinat: UNKNOWN DATE Second COVID19 Vaccination Daniele: UNKNOWN DATE 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: [employer] Seasonal Allergies Seasonal Allergies: No Past Medical History Surgeries: Yes Eye Surgery, Gallbladder Respiratory: No Cardiac: Yes Hypertension Neurological: No Sexually Transmitted Disease: No HIV/AIDS: No Genitourinary: No Gastrointestinal: No Abdominal Hernia Musculoskeletal: No Endocrine: No Hypothyroidsim HEENT: No Cancer: No Psychosocial: No Integumentary: No Blood Disorders: No Physical Exam Vital Signs Vital Signs - First Documented 02/18/21 02/18/21 10:41 12:29 Temp 36.9 Pulse 63 Resp 17 B/P (MAP) 206/65 (112) Pulse Ox 97 O2 Delivery Room Air Capillary Refill : Height/Weight/BMI Height: 5'10.00" Weight: 210lbs. 0oz. 95.992543mk; 32.00 BMI Method:Stated General Appearance: WD/WN, no apparent distress Neck: full range of motion Respiratory: lungs clear, normal breath sounds, no respiratory distress Cardiovascular: normal peripheral pulses, regular rate, rhythm Gastrointestinal: non tender, soft Extremities: normal range of motion Neurologic/Psychiatric: alert, normal mood/affect, oriented x 3 Skin: normal color, warm/dry Progress/Results/Core Measures Results/Orders Lab Results Laboratory Tests Test 02/18/21 10:49 02/18/21 11:13 Range/Units White Blood Count 7.2 4.3-11.0 10^3/uL Red Blood Count 3.15 L 4.30-5.52 10^6/uL Hemoglobin 10.0 L 13.3-17.7 g/dL Hematocrit 29 L 40-54 % Mean Corpuscular Volume 93 80-99 fL Mean Corpuscular Hemoglobin 32 25-34 pg Mean Corpuscular Hemoglobin Concent 34 32-36 g/dL Red Cell Distribution Width 13.2 10.0-14.5 % Platelet Count 335 130-400 10^3/uL Mean Platelet Volume 9.9 9.0-12.2 fL Immature Granulocyte % (Auto) 1 % Neutrophils (%) (Auto) 49 42-75 % Lymphocytes (%) (Auto) 30 12-44 % Monocytes (%) (Auto) 17 H 0-12 % Eosinophils (%) (Auto) 2 0-10 % Basophils (%) (Auto) 1 0-10 % Neutrophils # (Auto) 3.5 1.8-7.8 X 10^3 Lymphocytes # (Auto) 2.2 1.0-4.0 X 10^3 Monocytes # (Auto) 1.2 H 0.0-1.0 X 10^3 Eosinophils # (Auto) 0.1 0.0-0.3 10^3/uL Basophils # (Auto) 0.0 0.0-0.1 10^3/uL Immature Granulocyte # (Auto) 0.1 0.0-0.1 10^3/uL Prothrombin Time 18.1 H 12.2-14.7 SEC INR Comment 1.5 H 0.8-1.4 Activated Partial Thromboplast Time 40 H 24-35 SEC Sodium Level 133 L 135-145 MMOL/L Potassium Level 5.1 H 3.6-5.0 MMOL/L Chloride Level 102 98-107 MMOL/L Carbon Dioxide Level 19 L 21-32 MMOL/L Anion Gap 12 5-14 MMOL/L Blood Urea Nitrogen 29 H 7-18 MG/DL Creatinine 1.66 H 0.60-1.30 MG/DL Estimat Glomerular Filtration Rate 39 BUN/Creatinine Ratio 17 Glucose Level 99 70-105 MG/DL Calcium Level 9.1 8.5-10.1 MG/DL Corrected Calcium 9.0 8.5-10.1 MG/DL Total Bilirubin 0.3 0.1-1.0 MG/DL Aspartate Amino Transf (AST/SGOT) 27 5-34 U/L Alanine Aminotransferase (ALT/SGPT) 17 0-55 U/L Alkaline Phosphatase 83 40-136 U/L C-Reactive Protein 1.03 H <0.50 MG/DL Total Protein 7.8 6.4-8.2 GM/DL Albumin 4.1 3.2-4.5 GM/DL Influenza Type A Antigen NEGATIVE NEGATIVE Influenza Type B Antigen NEGATIVE NEGATIVE My Orders Orders - JAKE GRANADOS DO Cbc With Automated Diff (02/18/21 11:07) Protime With Inr (02/18/21 11:07) Partial Thromboplastin Time (02/18/21 11:07) Crp Fs (02/18/21 11:07) Covid 19 Inhouse Test (02/18/21 11:07) Influenza A & B Antigens (02/18/21 11:07) Chest 1 View Ap/Pa Only (02/18/21 11:08) Comprehensive Metabolic Panel (02/18/21 11:14) Vital Signs/I&O 02/18/21 02/18/21 10:41 12:29 Temp 36.9 Pulse 63 75 Resp 17 16 B/P (MAP) 206/65 (112) 161/67 Pulse Ox 97 O2 Delivery Room Air Room Air Progress Progress Note : Progress Note Patient is x-ray and labs showed no acute findings. Patient was no new acute complaint. Patient does have chronic shortness of breath but that is not new or changed. He did have a couple loose stools. His hemoglobin is stable. Discussed with him that he needs to be sure to keep his appointment for his already scheduled colonoscopy. Recommend he follow-up with a primary care provider for his chronic shortness of breath. I did discuss with him that maybe he has a early viral illness. Patient stable and discharged home Diagnostic Imaging Diagonstic Imaging: Xray Plain Films/CT/US/NM/MRI: chest Comments Date of Exam:02/18/21 CHEST 1 VIEW AP/PA ONLY INDICATION: Shortness of breath. COMPARISON: 01/21/2021. FINDINGS: The heart is enlarged but unchanged from prior. Some prominence of the lung markings is stable and chronic. No consolidating pneumonia, failure pattern, effusion, or pneumothorax. IMPRESSION: Prominence of the heart and chronic interstitial opacities, stable from prior. No new abnormality. Reviewed: Reviewed by Me, Reviewed/Discussed Departure Impression Primary Impression: Loose stools Additional Impressions: Chronic dyspnea Chronic breathlessness Disposition: HOME, SELF-CARE Condition: Stable Departure-Patient Inst. Referrals: SELFVENESSA MD (PCP/Family) Primary Care Physician Patient Instructions: Breathing Exercises, Diarrhea, Adult ED, Shortness of Breath (Dyspnea) (DC) Add. Discharge Instructions: Please follow-up with your primary care provider for recheck of your symptoms and further outpatient management All discharge instructions reviewed with patient and/or family. Voiced understanding. JAKE GRANADOS DO Feb 18, 2021 10:58
[2021-02-18 11:25] LABS: HEMATOCRIT 29 % (40-54); INR 1.5 (0.8-1.4); MEAN CORPUSCULAR HEMOGLOBIN 32 pg (25-34); MEAN CORPUSCULAR HGB CONC 34 g/dL (32-36); MEAN CORPUSCULAR VOLUME 93 fL (80-99); MEAN PLATELET VOLUME 9.9 fL (9.0-12.2); NEUTROPHILS % (AUTO) 49 % (42-75); PLATELET COUNT 335 10^3/uL (130-400); PROTHROMBIN TIME PATIENT 18.1 SEC (12.2-14.7); WHITE BLOOD COUNT 7.2 10^3/uL (4.3-11.0)
[2021-02-18 11:26] LABS: BASOPHILS % (AUTO) 1 % (0-10); EOSINOPHILS # (AUTO) 0.1 10^3/uL (0.0-0.3); EOSINOPHILS % (AUTO) 2 % (0-10); LYMPHOCYTES # (AUTO) 2.2 X 10^3 (1.0-4.0); LYMPHOCYTES % (AUTO) 30 % (12-44); MONOCYTES # (AUTO) 1.2 X 10^3 (0.0-1.0); MONOCYTES % (AUTO) 17 % (0-12); NEUTROPHILS # (AUTO) 3.5 X 10^3 (1.8-7.8)
--- NOTE | 2021-02-18 11:36 | Diagnostic Imaging Report ---
INDICATION: Shortness of breath. COMPARISON: 01/21/2021. FINDINGS: The heart is enlarged but unchanged from prior. Some prominence of the lung markings is stable and chronic. No consolidating pneumonia, failure pattern, effusion, or pneumothorax. IMPRESSION: Prominence of the heart and chronic interstitial opacities, stable from prior. No new abnormality. Dictated by: Dictated on workstation # [id number]
[2021-02-18 11:45] LABS: POTASSIUM 5.1 MMOL/L (3.6-5.0)
[2021-02-18 11:46] LABS: ALBUMIN 4.1 GM/DL (3.2-4.5); BILIRUBIN,TOTAL 0.3 MG/DL (0.1-1.0); CALCIUM 9.1 MG/DL (8.5-10.1); CREATININE SERUM 1.66 MG/DL (0.60-1.30); TOTAL PROTEIN 7.8 GM/DL (6.4-8.2)
[2021-02-18 12:29] VITALS: BP 161/67
== END 2021-02-18 12:29 | disposition home or self-care (01) ==
LOC: EDUNIT# 10:34 → ER FS 10:36
DX: U07.1 COVID-19 (principal); R06.00 Dyspnea, unspecified; I10 Essential (primary) hypertension; E03.9 Hypothyroidism, unspecified; Z79.890 Hormone replacement therapy; Z79.899 Other long term (current) drug therapy
CPT/HCPCS: 36415; 71045; 80053; 85025; 85027; 85610; 85730; 86141; 87636; 87804; 99283

== ENCOUNTER → 2021-02-25 | Outpatient (CLI) | payer MEDICARE ==
[~2021-02-25] VITALS: Ht 72 cm; Wt 95.6 kg
[~2021-02-25] MED LIST changes: +ACETAMINOPHEN 500 MG TAB (TYLENOL) PO PRN; +BAMLANIVIMAB 700 MG/ETESEVIMAB 1,400 MG IN NS IV ONE; +EPINEPHrine INJECTION 1 MG/ML AMP IM PRN; +ONDANSETRON 4 MG/2 ML (SDV) Z0FRAN IV PRN; +diphenhydrAMINE 50 MG/ML INJ (BENADRYL) IV PRN
[2021-02-25 09:28] VITALS: BP 160/50
[2021-02-25 10:52] VITALS: BP 143/51
== END ==
LOC: INFUSION 08:36
PROVIDERS: ATTEND Family Medicine
DX: U07.1 COVID-19 (principal)

== ENCOUNTER → 2021-03-12 | Outpatient (CLI) | payer MEDICARE ==
[~2021-03-12] MED LIST changes: -ACETAMINOPHEN 500 MG TAB (TYLENOL) PO PRN; -BAMLANIVIMAB 700 MG/ETESEVIMAB 1,400 MG IN NS IV ONE; -EPINEPHrine INJECTION 1 MG/ML AMP IM PRN; -ONDANSETRON 4 MG/2 ML (SDV) Z0FRAN IV PRN; -diphenhydrAMINE 50 MG/ML INJ (BENADRYL) IV PRN
[2021-03-12 12:42] LABS: CREATININE SERUM 1.56 MG/DL (0.60-1.30); POTASSIUM 4.6 MMOL/L (3.6-5.0)
== END ==
LOC: LAB FS 11:42
PROVIDERS: ATTEND Internal Medicine Interventional Cardiology
DX: I13.0 Hypertensive heart and chronic kidney disease with heart failure and stage 1 through stage 4 chronic kidney disease, or unspecified chronic kidney disease (principal); N18.9 Chronic kidney disease, unspecified
CPT/HCPCS: 36415; 80048

== ENCOUNTER 2021-03-25 03:19 | Emergency (ER) | payer MEDICARE ==
--- NOTE | 2021-03-25 03:37 | ED Chest Pain ---
General Stated Complaint: CHEST PAIN/SOA History of Present Illness Date Seen by Provider: Mar 25, 2021 Time Seen by Provider: 03:30 Initial Comments 89-year-old male presents because he feels like his heart is beating fast and some mild discomfort. Little bit of shortness of breath. Reports is been going on for about 5 days was little bit worse last night. Patient denies any fever, chills, nausea, vomiting or any other systemic complaints. Patient has a known prior history of atrial for but does not believe he is on anything at this time. Allergies and Home Medications Allergies Coded Allergies: Sulfa (Sulfonamide Antibiotics) (Verified Allergy, Unknown, 05/24/18) Patient Home Medication List Home Medication List Reviewed: Yes Cholestyramine (with Sugar) (Cholestyramine Packet) 4 Gm Powd.pack, (Reported) Entered as Reported by: BABATUNDE MORRELL on 05/24/18 1356 Clonidine HCl (Clonidine HCl) 0.1 Mg Tablet, 0.1 MG PO Q12H PRN for BLOOD PRESSURE Prescribed by: JOSE ELIAS MIRANDA on 05/24/18 1534 Isosorbide Mononitrate (Isosorbide Mononitrate ER) 60 Mg Tab, (Reported) Entered as Reported by: BABATUNDE MORRELL on 05/24/18 1356 Levothyroxine Sodium (Levothyroxine Sodium) 50 Mcg Tablet, (Reported) Entered as Reported by: BABATUNDE MORRELL on 05/24/18 135 Lisinopril (Lisinopril) 10 Mg Tablet, (Reported) Entered as Reported by: BABATUNDE MORRELL on 05/24/18 135 Metoprolol Tartrate (Metoprolol Tartrate) 25 Mg Tablet, (Reported) Entered as Reported by: BABATUNDE MORRELL on 05/24/18 1356 Potassium Chloride (Potassium Chloride) 10 Meq Tablet.er, (Reported) Entered as Reported by: BABATUNDE MORRELL on 05/24/18 135 Ranolazine (Ranolazine ER) 500 Mg Tab.er.12h, (Reported) Entered as Reported by: BABATUNDE MORRELL on 05/24/18 1356 Trazodone HCl (Trazodone HCl) 50 Mg Tablet, (Reported) Entered as Reported by: BABATUNDE MORRELL on 05/24/18 1356 Review of Systems Review of Systems Constitutional: No chills, No fever Respiratory: Denies Cough, Denies Shortness of Air Cardiovascular: See HPI, Palpitations Gastrointestinal: Denies Abdominal Pain, Denies Nausea, Denies Vomiting Genitourinary: No Symptoms Reported Musculoskeletal: no symptoms reported Skin: no symptoms reported Psychiatric/Neurological: No Symptoms Reported Endocrine: No Symptoms Reported Past Htavkjt-Wercfs-Kkkywm Hx Immunizations Up To Date First/Initial COVID19 Vaccinat: UNKNOWN DATE Second COVID19 Vaccination Daniele: UNKNOWN DATE Seasonal Allergies Seasonal Allergies: No Past Medical History Surgeries: Yes Eye Surgery, Gallbladder Respiratory: No Cardiac: Yes Hypertension Neurological: No Sexually Transmitted Disease: No HIV/AIDS: No Genitourinary: No Gastrointestinal: No Abdominal Hernia Musculoskeletal: No Endocrine: No Hypothyroidsim HEENT: No Cancer: No Psychosocial: No Integumentary: No Blood Disorders: No Physical Exam Vital Signs Vital Signs - First Documented 03/25/21 03:26 Temp 36.8 Pulse 133 Resp 20 B/P (MAP) 148/71 (96) Pulse Ox 99 O2 Delivery Room Air Capillary Refill : Height, Weight, BMI Height: 5'10.00" Weight: 210lbs. 0oz. [id number]; 28.00 BMI Method:Stated General Appearance: No Apparent Distress, WD/WN Neck: Supple Respiratory: Lungs Clear, Normal Breath Sounds Cardiovascular: Normal Peripheral Pulses, Irregularly Irregular, Tachycardia Extremity: Normal Capillary Refill, Normal Inspection Neurologic/Psychiatric: Alert, Oriented x3, No Motor/Sensory Deficits, Normal Mood/Affect, gasket notcher II-XII Norm as Tested Skin: Normal Color, Warm/Dry Progress/Results/Core Measures Results/Orders Lab Results Laboratory Tests Test 03/25/21 03:35 Range/Units White Blood Count 9.2 4.3-11.0 10^3/uL Red Blood Count 3.05 L 4.30-5.52 10^6/uL Hemoglobin 8.9 L 13.3-17.7 g/dL Hematocrit 28 L 40-54 % Mean Corpuscular Volume 91 80-99 fL Mean Corpuscular Hemoglobin 29 25-34 pg Mean Corpuscular Hemoglobin Concent 32 32-36 g/dL Red Cell Distribution Width 14.3 10.0-14.5 % Platelet Count 328 130-400 10^3/uL Mean Platelet Volume 9.2 9.0-12.2 fL Immature Granulocyte % (Auto) 1 % Neutrophils (%) (Auto) 57 42-75 % Lymphocytes (%) (Auto) 22 12-44 % Monocytes (%) (Auto) 13 H 0-12 % Eosinophils (%) (Auto) 6 0-10 % Basophils (%) (Auto) 1 0-10 % Neutrophils # (Auto) 5.3 1.8-7.8 10^3/uL Lymphocytes # (Auto) 2.1 1.0-4.0 10^3/uL Monocytes # (Auto) 1.2 H 0.0-1.0 10^3/uL Eosinophils # (Auto) 0.5 H 0.0-0.3 10^3/uL Basophils # (Auto) 0.1 0.0-0.1 10^3/uL Immature Granulocyte # (Auto) 0.1 0.0-0.1 10^3/uL Prothrombin Time 13.1 12.2-14.7 SEC INR Comment 1.0 0.8-1.4 Activated Partial Thromboplast Time 29 24-35 SEC D-Dimer 1.01 H 0.00-0.49 UG/ML Sodium Level 133 L 135-145 MMOL/L Potassium Level 4.5 3.6-5.0 MMOL/L Chloride Level 102 98-107 MMOL/L Carbon Dioxide Level 18 L 21-32 MMOL/L Anion Gap 13 5-14 MMOL/L Blood Urea Nitrogen 21 H 7-18 MG/DL Creatinine 1.25 0.60-1.30 MG/DL Estimat Glomerular Filtration Rate 55 BUN/Creatinine Ratio 17 Glucose Level 146 H 70-105 MG/DL Calcium Level 8.4 L 8.5-10.1 MG/DL Corrected Calcium 8.7 8.5-10.1 MG/DL Magnesium Level 2.0 1.6-2.4 MG/DL Total Bilirubin 0.2 0.1-1.0 MG/DL Aspartate Amino Transf (AST/SGOT) 18 5-34 U/L Alanine Aminotransferase (ALT/SGPT) 13 0-55 U/L Alkaline Phosphatase 65 40-136 U/L Myoglobin 43.9 10.0-92.0 NG/ML Troponin I < 0.30 <0.30 NG/ML Pro-B-Type Natriuretic Peptide 701.8 H <75.0 PG/ML Total Protein 6.8 6.4-8.2 GM/DL Albumin 3.6 3.2-4.5 GM/DL Lipase 52 8-78 U/L My Orders Orders - GRANADOS,JAKE L DO Cbc With Automated Diff (03/25/21 03:35) Magnesium (03/25/21 03:35) Chest 1 View Ap/Pa Only (03/25/21 03:35) Ekg Tracing (03/25/21 03:35) Comprehensive Metabolic Panel (03/25/21 03:35) Myoglobin Serum (03/25/21 03:35) Protime With Inr (03/25/21 03:35) Partial Thromboplastin Time (03/25/21 03:35) O2 (03/25/21 03:35) Monitor-Rhythm Ecg Trace Only (03/25/21 03:35) Lipid Panel (03/26/21 06:00) Ed Iv/Invasive Line Start (03/25/21 03:35) Lipase (03/25/21 03:35) Ed Iv/Invasive Line Start (03/25/21 03:35) Ns Iv 500 Ml (Sodium Chloride 0.9%) (03/25/21 03:45) Fibrin Degradation Products (03/25/21 03:35) Probnp Fs (03/25/21 03:35) Troponin I Fs (03/25/21 03:35) Metoprolol Tartrate Injection (Lopressor (03/25/21 04:45) Metoprolol Succinate (Xl) Tab (Toprol Xl (03/25/21 09:00) Diltiazem Injection (Cardizem Injection) (03/25/21 05:30) Metoprolol Succinate (Xl) Tab (Toprol Xl (03/25/21 05:30) Medications Given in ED Current Medications Medications Dose Ordered Sig/Mary Route Start Time Stop Time Status Last Admin Dose Admin Diltiazem HCl 10 mg ONCE ONCE IVP 03/25/21 05:30 03/25/21 05:31 03/25/21 05:27 10 MG Metoprolol Tartrate 5 mg ONCE ONCE IV 03/25/21 04:45 03/25/21 04:46 DC 03/25/21 04:38 5 MG Sodium Chloride 500 ml @ 0 mls/hr Q0M ONCE IV 03/25/21 03:45 03/25/21 03:46 DC 03/25/21 03:41 999 MLS/HR Vital Signs/I&O 03/25/21 03:26 Temp 36.8 Pulse 133 Resp 20 B/P (MAP) 148/71 (96) Pulse Ox 99 O2 Delivery Room Air Progress Progress Note : Progress Note Patient with recurrent A. fib with his heart rate was 120s to 130s. Patient was given metoprolol 5 mg along with 10 of diltiazem. Patient's heart rate then dropped out into the mid 80s and remained in A. fib. Patient was feeling a lot better. Patient was also given 25 of metoprolol. Patient will be discharged with a prescription for Cardizem. Patient stable at discharge home Departure Impression Primary Impression: Atrial fibrillation Qualified Codes: I48.91 - Unspecified atrial fibrillation Disposition: HOME, SELF-CARE Condition: Stable Departure-Patient Inst. Referrals: VENESSA CLARK MD (PCP/Family) Primary Care Physician Patient Instructions: Atrial Fibrillation (DC) Add. Discharge Instructions: Follow-up with Dr. Clark in 2 to 3 days for recheck of your heart rate and further control of your medications Scripts Diltiazem HCl (Cardizem Cd) 120 Mg Cap.er.24h 120 MG PO DAILY, #14 CAP Prov: JAKE GRANADOS DO 03/25/21 JAKE GRANADOS DO Mar 25, 2021 03:37
[2021-03-25 03:43] LABS: BASOPHILS # (AUTO) 0.1 10^3/uL (0.0-0.1); BASOPHILS % (AUTO) 1 % (0-10); EOSINOPHILS # (AUTO) 0.5 10^3/uL (0.0-0.3); EOSINOPHILS % (AUTO) 6 % (0-10); HEMATOCRIT 28 % (40-54); HEMOGLOBIN 8.9 g/dL (13.3-17.7); LYMPHOCYTES # (AUTO) 2.1 10^3/uL (1.0-4.0); LYMPHOCYTES % (AUTO) 22 % (12-44); MEAN CORPUSCULAR HEMOGLOBIN 29 pg (25-34); MEAN CORPUSCULAR HGB CONC 32 g/dL (32-36); MEAN CORPUSCULAR VOLUME 91 fL (80-99); MEAN PLATELET VOLUME 9.2 fL (9.0-12.2); MONOCYTES # (AUTO) 1.2 10^3/uL (0.0-1.0); MONOCYTES % (AUTO) 13 % (0-12); NEUTROPHILS # (AUTO) 5.3 10^3/uL (1.8-7.8); NEUTROPHILS % (AUTO) 57 % (42-75); PLATELET COUNT 328 10^3/uL (130-400); WHITE BLOOD COUNT 9.2 10^3/uL (4.3-11.0)
[2021-03-25] MEDS ORDERED: NS IV 500 ML 500 ML IV ONE (03:45)
[2021-03-25 04:03] LABS: PROTHROMBIN TIME PATIENT 13.1 SEC (12.2-14.7)
[2021-03-25 04:18] LABS: CARBON DIOXIDE 18 MMOL/L (21-32); CHLORIDE 102 MMOL/L (98-107); POTASSIUM 4.5 MMOL/L (3.6-5.0); SODIUM 133 MMOL/L (135-145)
[2021-03-25 04:19] LABS: ALANINE AMINOTRANSFERASE 13 U/L (0-55); ALBUMIN 3.6 GM/DL (3.2-4.5); ALKALINE PHOSPHATASE 65 U/L (40-136); BILIRUBIN,TOTAL 0.2 MG/DL (0.1-1.0); BUN/CREATININE RATIO 17; CALCIUM 8.4 MG/DL (8.5-10.1); CREATININE SERUM 1.25 MG/DL (0.60-1.30); GFR ESTIMATED 55; GLUCOSE 146 MG/DL (70-105); LIPASE 52 U/L (8-78); TOTAL PROTEIN 6.8 GM/DL (6.4-8.2)
[2021-03-25] MEDS ORDERED: meTOprolol 5 MG/5 ML (LOPRESSOR) VIAL IV ONE (04:45)
[2021-03-25 05:06] LABS: FIBRIN DEGRADATION PRODUCTS 1.01 UG/ML (0.00-0.49)
[2021-03-25] MEDS ORDERED: DILT120C82 PO (05:36)
[2021-03-25 05:48] VITALS: BP 100/55
--- NOTE | 2021-03-25 06:46 | Diagnostic Imaging Report ---
INDICATION: Chest pain and dyspnea. Portable upright AP view of the chest is obtained with comparison made to study of 02/18/2021. There is generalized cardiomegaly. There is mild bilateral air trapping. Prominent interstitial markings are seen throughout the lungs which have increased. There is no consolidation, pneumothorax or definite pleural fluid. IMPRESSION: Cardiomegaly and increasing interstitial lung markings may be on the basis of congestive heart failure and developing pulmonary edema. Dictated by: Dictated on workstation # [id number]
== END 2021-03-25 06:20 | disposition home or self-care (01) ==
LOC: EDUNIT# 03:19 → ER FS 03:28
DX: I48.91 Unspecified atrial fibrillation (principal); I10 Essential (primary) hypertension; E03.9 Hypothyroidism, unspecified; Z79.890 Hormone replacement therapy; Z79.899 Other long term (current) drug therapy
CPT/HCPCS: 36415; 71045; 80053; 83690; 83735; 83874; 83880; 84484; 85025; 85379; 85610; 85730; 93005; 93041

== ENCOUNTER → 2021-04-23 | Outpatient (CLI) | payer MEDICARE ==
[~2021-04-23] MED LIST changes: +CATHETER FLUSH 10 ML SYR IV PRN; +DILT120C82 PO; +HOLD METFORMIN - RECEIVED CONTRAST 20 ML VIAL IV SCH; +IOHEXOL 350 MG/ML 100 ML (OMNIPAQUE 350) VIAL IV ONE; +NS 100 ML (IVPB) BAG IV ONE
--- NOTE | 2021-04-23 11:13 | Diagnostic Imaging Report ---
PROCEDURE: CT abdomen and pelvis with contrast. TECHNIQUE: Multiple contiguous axial images were obtained through the abdomen and pelvis after administration of intravenous contrast. Auto Exposure Controls were utilized during the CT exam to meet ALARA standards for radiation dose reduction. All CT scans use one or more of the following dose optimizing techniques: Automated exposure control, MA and/or KvP adjustment based on patient size and exam type or iterative reconstruction. INDICATION: Colon cancer, site not specified. COMPARISON: Exam is compared with nonenhanced CT abdomen and pelvis dated 02/03/2019. FINDINGS: Some chronic scarring in the lung bases. No dominant basilar mass or acute infiltrate. Gallbladder is surgically absent. There is no bile duct dilatation. There was no evidence for a liver mass. Spleen is nonfocal and normal in size. The adrenals are negative. There are bilateral renal nonobstructing calcifications and cysts. No hydroureteronephrosis. The aortoiliac and mesenteric vessels showed extensive calcified atherosclerotic disease, but no aneurysm, dissection, rupture, or occlusive thrombus found. No features of end organ ischemia. There is stool within the lumen of the unprepped colon. Air-less aggregate stool versus mass is found within the lumen of the lower ascending colon. There is no convincing visualization of the patient's reported colon mass. No pericolonic edema or adenopathy. There is severe diverticulosis of the sigmoid, but no features of acute diverticulitis. There is no abdominopelvic mesenteric or retroperitoneal lymphadenopathy. There are fatty bilateral inguinal hernias, noninflamed and nonacute, greater right. No acute appearing abdominal wall pathology. No suspicious lytic or sclerotic bone lesion. IMPRESSION: 1. No obstruction, perforation, hemorrhage, or evidence for metastatic disease. 2. No clear visualization of the reported colon mass. An intraluminal filling defect in the lumen of the proximal ascending colon may be a soft tissue lesion or air-less aggregate intraluminal stool. 3. Nonaneurysmal atherosclerosis, nonobstructing nephrolithiasis, noninflamed diverticulosis, and fatty nonacute inguinal hernias. Dictated by: Dictated on workstation # [id number]
== END ==
LOC: LAB FS 10:02
PROVIDERS: ATTEND Emergency Medicine
DX: K57.30 Diverticulosis of large intestine without perforation or abscess without bleeding (principal); N20.0 Calculus of kidney; K40.20 Bilateral inguinal hernia, without obstruction or gangrene, not specified as recurrent; I70.90 Unspecified atherosclerosis; C18.9 Malignant neoplasm of colon, unspecified
CPT/HCPCS: 74177; Q9967

== ENCOUNTER 2021-05-06 06:34 | Emergency (ER) | payer MEDICARE ==
[~2021-05-06] VITALS: Ht 182.8 cm; Wt 99.7 kg
[2021-05-06] MEDS ORDERED: NS IV 1000 ML 1,000 ML IV STA (06:52)
--- NOTE | 2021-05-06 07:06 | ED General ---
General Chief Complaint: Respiratory Problems Stated Complaint: TROUBLE BREATHING Source of Information: Patient, Old Records (CARI POWERS MD) History of Present Illness Date Seen by Provider: May 06, 2021 Time Seen by Provider: 06:38 Initial Comments 89-year-old male presenting with complaints of shortness of breath for at least the last several weeks to months. He states that it seems like it is worse when the is laying down to sleep at night. He denies having any fever or chills. He has not been having any increased cough. He has a history of atrial fibrillation and was seen for similar complaints on March 25. At that time he was complaining of being short of breath and was noted to be in atrial fibrillation. He has no recent diagnosis of adenocarcinoma and colon cancer. He states that he had a colonoscopy with Dr. Bennett in [place] and after that they had wanted him to follow-up May 16 with a provider in [place]. He thinks that that is to discuss the findings from the colonoscopy. He was not entirely sure. He has a security patrol officer, Dr. Hammonds, in [place] but has not seen him since he was here at the end of February. He states he has not followed up with Dr. Clark about his atrial fibrillation or concerns with his breathing since he was last seen here in the emergency department either. Severity: Moderate Modifying Factors: worse with Rest (when he goes to bed at night) Associated Systoms: Chest Pain (when he gets really short of breath he has tightness in chest); No Cough, No Diaphoresis, No Fever/Chills, No Headaches, No Loss of Appetite, No Malaise, No Nausea/Vomiting, No Rash, No Seizure; Shortness of Air; No Syncope (CARI POWERS MD) Allergies and Home Medications Allergies Coded Allergies: Sulfa (Sulfonamide Antibiotics) (Verified Allergy, Unknown, 05/24/18) Patient Home Medication List Home Medication List Reviewed: Yes (CARI POWERS MD) Cholestyramine (with Sugar) (Cholestyramine Packet) 4 Gm Powd.pack, (Reported) Entered as Reported by: BABATUNDE MORRELL on 05/24/18 1356 Clonidine HCl (Clonidine HCl) 0.1 Mg Tablet, 0.1 MG PO Q12H PRN for BLOOD PRESSURE Prescribed by: JOSE ELIAS MIRANDA on 05/24/18 1534 Diltiazem HCl (Cardizem Cd) 120 Mg Cap.er.24h, 120 MG PO DAILY Prescribed by: JAKE GRANADOS on 03/25/21 0536 Isosorbide Mononitrate (Isosorbide Mononitrate ER) 60 Mg Tab, (Reported) Entered as Reported by: BABATUNDE MORRELL on 05/24/18 1356 Levothyroxine Sodium (Levothyroxine Sodium) 50 Mcg Tablet, (Reported) Entered as Reported by: BABATUNDE MORRELL on 05/24/18 1356 Lisinopril (Lisinopril) 10 Mg Tablet, (Reported) Entered as Reported by: BABATUNDE MORRELL on 05/24/18 135 Metoprolol Tartrate (Metoprolol Tartrate) 25 Mg Tablet, (Reported) Entered as Reported by: BABATUNDE MORRELL on 05/24/18 1356 Potassium Chloride (Potassium Chloride) 10 Meq Tablet.er, (Reported) Entered as Reported by: BABATUNDE MORRELL on 05/24/18 135 Ranolazine (Ranolazine ER) 500 Mg Tab.er.12h, (Reported) Entered as Reported by: BABATUNDE MORRELL on 05/24/18 135 Trazodone HCl (Trazodone HCl) 50 Mg Tablet, (Reported) Entered as Reported by: BABATUNDE MORRELL on 05/24/18 1356 Review of Systems Review of Systems Constitutional: No chills, No dizziness, No fever EENTM: No epistaxis, No nose congestion Respiratory: see HPI; No cough, No phlegm; short of breath; No stridor, No wheezing Cardiovascular: see HPI, chest pain (tightness when he gets short of breath), palpitations Gastrointestinal: no symptoms reported Genitourinary: no symptoms reported Musculoskeletal: no symptoms reported Skin: no symptoms reported Psychiatric/Neurological: No Symptoms Reported Hematologic/Lymphatic: Denies Blood Clots (CARI POWERS MD) Past Htyviyb-Rnfryr-Ugwqbg Hx Patient Social History Tobacco Use?: No Substance use?: No Alcohol Use?: No Pt feels they are or have been: No (CARI POWERS MD) Immunizations Up To Date First/Initial COVID19 Vaccinat: UNKNOWN DATE Second COVID19 Vaccination Daniele: UNKNOWN DATE COVID19 Vaccine [employer] Home [employer]: Yancy (CRAI POWERS MD) Seasonal Allergies Seasonal Allergies: No (CARI POWERS MD) Past Medical History Surgery/Hospitalization HX: Paroxysmal Atrial Fibrillation, Cholecystectomy, hypertension, hypothyroid, adenocarcinoma of the colon Surgeries: Yes Eye Surgery, Gallbladder Respiratory: No Cardiac: Yes Hypertension Neurological: No Sexually Transmitted Disease: No HIV/AIDS: No Genitourinary: No Gastrointestinal: No Abdominal Hernia Musculoskeletal: No Endocrine: No Hypothyroidsim HEENT: No Cancer: No Psychosocial: No Integumentary: No Blood Disorders: No (CARI POWERS MD) Physical Exam Vital Signs Vital Signs - First Documented 05/06/21 06:41 Temp 37.0 Pulse 117 Resp 19 B/P (MAP) 144/89 (107) Pulse Ox 97 O2 Delivery Room Air (TORIBIO LANDIN MD) Vital Signs Capillary Refill : (CARI POWERS MD) Height, Weight, BMI Height: 5'10.00" Weight: 210lbs. 0oz. 95.496898ma; 28.00 BMI Method:Stated General Appearance: No Apparent Distress, Obese HEENT: Normal ENT Inspection, Pharynx Normal Neck: Full Range of Motion, Normal Inspection, Non Tender, Supple Respiratory: Chest Non Tender, No Accessory Muscle Use, No Respiratory Distress , Decreased Breath Sounds Cardiovascular: Normal Peripheral Pulses, Irregularly Irregular, Tachycardia Gastrointestinal: Normal Bowel Sounds, No Pulsatile Mass, Non Tender, Soft Rectal: Deferred Extremity: Normal Capillary Refill, Normal Inspection Neurologic/Psychiatric: Alert, Oriented x3 Skin: Normal Color, Warm/Dry (CARI POWERS MD) Progress/Results/Core Measures Suspected Sepsis SIRS Temperature: Pulse: Respiratory Rate: Laboratory Tests 05/06/21 06:46: Blood Pressure / Mean: Laboratory Tests 05/06/21 06:46: (CARI POWERS MD) Results/Orders Lab Results Laboratory Tests Test 05/06/21 06:46 Range/Units White Blood Count 10.6 4.3-11.0 10^3/uL Red Blood Count 3.50 L 4.30-5.52 10^6/uL Hemoglobin 9.8 L 13.3-17.7 g/dL Hematocrit 30 L 40-54 % Mean Corpuscular Volume 86 80-99 fL Mean Corpuscular Hemoglobin 28 25-34 pg Mean Corpuscular Hemoglobin Concent 33 32-36 g/dL Red Cell Distribution Width 16.1 H 10.0-14.5 % Platelet Count 396 130-400 10^3/uL Mean Platelet Volume 9.0 9.0-12.2 fL Immature Granulocyte % (Auto) 1 % Neutrophils (%) (Auto) 59 42-75 % Lymphocytes (%) (Auto) 20 12-44 % Monocytes (%) (Auto) 17 H 0-12 % Eosinophils (%) (Auto) 3 0-10 % Basophils (%) (Auto) 1 0-10 % Neutrophils # (Auto) 6.3 1.8-7.8 10^3/uL Lymphocytes # (Auto) 2.1 1.0-4.0 10^3/uL Monocytes # (Auto) 1.8 H 0.0-1.0 10^3/uL Eosinophils # (Auto) 0.3 0.0-0.3 10^3/uL Basophils # (Auto) 0.1 0.0-0.1 10^3/uL Immature Granulocyte # (Auto) 0.1 0.0-0.1 10^3/uL Prothrombin Time 13.2 12.2-14.7 SEC INR Comment 1.0 0.8-1.4 Activated Partial Thromboplast Time 28 24-35 SEC Sodium Level 135 135-145 MMOL/L Potassium Level 4.5 3.6-5.0 MMOL/L Chloride Level 101 98-107 MMOL/L Carbon Dioxide Level 21 21-32 MMOL/L Anion Gap 13 5-14 MMOL/L Blood Urea Nitrogen 30 H 7-18 MG/DL Creatinine 1.95 H 0.60-1.30 MG/DL Estimat Glomerular Filtration Rate 32 BUN/Creatinine Ratio 15 Glucose Level 115 H 70-105 MG/DL Calcium Level 9.1 8.5-10.1 MG/DL Corrected Calcium 9.0 8.5-10.1 MG/DL Magnesium Level 2.0 1.6-2.4 MG/DL Total Bilirubin 0.4 0.1-1.0 MG/DL Aspartate Amino Transf (AST/SGOT) 16 5-34 U/L Alanine Aminotransferase (ALT/SGPT) 12 0-55 U/L Alkaline Phosphatase 64 40-136 U/L Myoglobin 79.0 10.0-92.0 NG/ML Troponin I < 0.30 <0.30 NG/ML Pro-B-Type Natriuretic Peptide 351.7 H <75.0 PG/ML Total Protein 7.7 6.4-8.2 GM/DL Albumin 4.1 3.2-4.5 GM/DL (TORIBIO LANDIN MD) My Orders Orders - TORIBIO LANDIN MD Diltiazem Cd 24 Hr Capsule (Cardizem Cd (05/06/21 07:15) Furosemide Injection (Lasix Injection) (05/06/21 08:00) (TORIBIO LANDIN MD) Vital Signs/I&O 05/06/21 05/06/21 06:41 07:08 Temp 37.0 Pulse 117 Resp 19 B/P (MAP) 144/89 (107) Pulse Ox 97 O2 Delivery Room Air Room Air (TORIBIO LANDIN MD) Vital Signs/I&O Capillary Refill : (CARI POWERS MD) Progress Note : Progress Note With patient having atrial fibrillation with heart rate varying from 110-140s will give a liter of normal saline for hydration and order 10 mg IV bolus of diltiazem. From reviewing his chart in February it looks like he had responded to that medication. He had been discharged on a 2-week course of diltiazem but patient stated that he had not followed up with anyone since he had left the ER about his atrial fibrillation. Check basic labs and cardiac enzymes. He has oxygen saturation initially is 98 to 100% on room air. Order chest x-ray for his complaint of shortness of breath. Patient denies being on any blood thinners. Will pass care to Dr. Landin at shift change pending test results and response to treatment in ED. (CARI POWERS MD) Progress Note : Progress Note Received the patient in signout pending his work-up. His creatinine is around his baseline around 1.95, hemoglobin around his baseline 9.8, normal white blood cell count, negative troponin, proBNP around 300 which is slightly lower than last time. Chest x-ray with some cardiomegaly and interstitial findings likely some fluid. His heart rate came down nicely with the diltiazem so converted him to oral and will send over prescription home for this. I again reiterated that he needs to follow-up with either his primary care doctor or his security patrol officer to continue this prescription as his atrial fibrillation needs to be rate controlled. His [id number] score is 3 making him a candidate for anticoagulation. However, his doctor took him off his anticoagulation due to GI bleeding which is what led to the colonoscopy showing his adenocarcinoma. He has an appointment here in 10 days with the surgeon, and has been instructed to not continue anticoagulation at this time. So I will hold off on restarting him on that. On reassessment, with his heart rate coming down, he says he feels back to his baseline, has no chest discomfort, is not short of breath, and feels better. I believe he is stable for discharge with outpatient follow-up. He was sent home with strict return precautions. (TORIBIO LANDIN MD) ECG Initial ECG Impression Date: May 06, 2021 Initial ECG Impression Time: 06:45 Initial ECG Rate: 120 Initial ECG Rhythm: A Fib/Flutter Initial ECG Comparisson: Unchanged Comment Atrial fibrillation with a heart rate of 120 bpm. Borderline repolarization changes in the inferolateral leads. Borderline prolonged QT interval of 346 ms and a QTc interval of 489 ms. There is no acute ST elevation. Overall this appears similar to prior tracing from March 25. (CARI POWERS MD) Diagnostic Imaging Diagonstic Imaging: Xray Plain Films/CT/US/NM/MRI: chest (CARI POWERS MD) Departure Impression Primary Impression: Paroxysmal atrial fibrillation with rapid ventricular response Additional Impression: Dyspnea Qualified Codes: R06.02 - Shortness of breath Disposition: 01 HOME, SELF-CARE Condition: Stable Departure-Patient Inst. Decision time for Depature: 07:49 (TORIBIO LANDIN MD) Referrals: SELF,VENESSA LÓPEZ (PCP/Family) Primary Care Physician Patient Instructions: Atrial Fibrillation and Atrial Flutter ED Add. Discharge Instructions: I have restarted you on the diltiazem pill. I wrote a prescription for 1 month. Please have your security patrol officer or your primary care doctor either continue this prescription or they need to start something similar that can help treat your atrial fibrillation. If you begin having significant chest pain or shortness of breath please come back to the ER. Scripts Diltiazem HCl (Cardizem Cd) 120 Mg Cap.er.24h 120 MG PO DAILY for 30 Days, #30 CAP Prov: TORIBIO LANDIN MD 05/06/21 CARI POWERS MD May 06, 2021 07:06 TORIBIO LANDIN MD May 06, 2021 07:51
[2021-05-06 07:13] LABS: BASOPHILS # (AUTO) 0.1 10^3/uL (0.0-0.1); BASOPHILS % (AUTO) 1 % (0-10); EOSINOPHILS # (AUTO) 0.3 10^3/uL (0.0-0.3); EOSINOPHILS % (AUTO) 3 % (0-10); HEMATOCRIT 30 % (40-54); HEMOGLOBIN 9.8 g/dL (13.3-17.7); LYMPHOCYTES # (AUTO) 2.1 10^3/uL (1.0-4.0); LYMPHOCYTES % (AUTO) 20 % (12-44); MEAN CORPUSCULAR HEMOGLOBIN 28 pg (25-34); MEAN CORPUSCULAR HGB CONC 33 g/dL (32-36); MEAN CORPUSCULAR VOLUME 86 fL (80-99); MONOCYTES # (AUTO) 1.8 10^3/uL (0.0-1.0); MONOCYTES % (AUTO) 17 % (0-12); NEUTROPHILS # (AUTO) 6.3 10^3/uL (1.8-7.8); NEUTROPHILS % (AUTO) 59 % (42-75); PLATELET COUNT 396 10^3/uL (130-400); WHITE BLOOD COUNT 10.6 10^3/uL (4.3-11.0)
[2021-05-06] MEDS ORDERED: dilTIAZem120 MG (CARDIZEM CD) CAP PO SCH (07:15)
--- NOTE | 2021-05-06 07:17 | Diagnostic Imaging Report ---
Indication: Shortness breath. Comparison: 03/25/2021 Findings: Single view of the chest demonstrates cardiac enlargement with stable interstitial infiltrates which may be chronic. New basilar atelectasis is present. There is no pneumothorax or large effusion. Osseous structures stable. Impression: 1. Cardiac enlargement with interstitial infiltrates similar to the prior exam. Followup recommended. 2. Basilar atelectasis Dictated by: Dictated on workstation # [id number]
[2021-05-06 07:28] LABS: PROTHROMBIN TIME PATIENT 13.2 SEC (12.2-14.7)
[2021-05-06 07:31] LABS: CALCIUM 9.1 MG/DL (8.5-10.1); CREATININE SERUM 1.95 MG/DL (0.60-1.30); POTASSIUM 4.5 MMOL/L (3.6-5.0)
[2021-05-06 07:32] LABS: ALBUMIN 4.1 GM/DL (3.2-4.5); BILIRUBIN,TOTAL 0.4 MG/DL (0.1-1.0); TOTAL PROTEIN 7.7 GM/DL (6.4-8.2)
[2021-05-06] MEDS ORDERED: DILT120C82 PO (07:51)
[2021-05-06] MEDS ORDERED: FUROSEMIDE 40 MG/4 ML INJ (LASIX) IVP ONE (08:00)
[2021-05-06 08:08] VITALS: BP 136/78
== END 2021-05-06 08:08 | disposition home or self-care (01) ==
LOC: EDUNIT# 06:34 → ER FS 06:37
DX: I48.20 Chronic atrial fibrillation, unspecified (principal); R06.00 Dyspnea, unspecified; E66.9 Obesity, unspecified; Z68.28 Body mass index [BMI] 28.0-28.9, adult
CPT/HCPCS: 36415; 71045; 80053; 83735; 83874; 83880; 84484; 85025; 85610; 85730; 93005; 93041

== ENCOUNTER → 2021-05-06 | Outpatient (CLI) | payer MEDICARE ==
[~2021-05-06] MED LIST changes: -CATHETER FLUSH 10 ML SYR IV PRN; -HOLD METFORMIN - RECEIVED CONTRAST 20 ML VIAL IV SCH; -IOHEXOL 350 MG/ML 100 ML (OMNIPAQUE 350) VIAL IV ONE; -NS 100 ML (IVPB) BAG IV ONE
[2021-05-06 15:35] LABS: BASOPHILS # (AUTO) 0.1 10^3/uL (0.0-0.1); BASOPHILS % (AUTO) 1 % (0-10); EOSINOPHILS # (AUTO) 0.2 10^3/uL (0.0-0.3); EOSINOPHILS % (AUTO) 2 % (0-10); HEMATOCRIT 29 % (40-54); HEMOGLOBIN 9.5 g/dL (13.3-17.7); LYMPHOCYTES # (AUTO) 1.9 10^3/uL (1.0-4.0); LYMPHOCYTES % (AUTO) 21 % (12-44); MEAN CORPUSCULAR HEMOGLOBIN 28 pg (25-34); MEAN CORPUSCULAR HGB CONC 33 g/dL (32-36); MEAN CORPUSCULAR VOLUME 85 fL (80-99); MEAN PLATELET VOLUME 8.9 fL (9.0-12.2); MONOCYTES # (AUTO) 1.4 10^3/uL (0.0-1.0); MONOCYTES % (AUTO) 15 % (0-12); NEUTROPHILS # (AUTO) 5.3 10^3/uL (1.8-7.8); NEUTROPHILS % (AUTO) 59 % (42-75); PLATELET COUNT 384 10^3/uL (130-400); WHITE BLOOD COUNT 8.8 10^3/uL (4.3-11.0)
[2021-05-06 15:50] LABS: SMEAR SCAN COMMENT SCAN OK
[2021-05-06 16:05] LABS: ALKALINE PHOSPHATASE 62 U/L (40-136); BILIRUBIN,TOTAL 0.3 MG/DL (0.1-1.0); BUN/CREATININE RATIO 15; CALCIUM 9.1 MG/DL (8.5-10.1); CARBON DIOXIDE 22 MMOL/L (21-32); CHLORIDE 102 MMOL/L (98-107); CREATININE SERUM 2.14 MG/DL (0.60-1.30); GFR ESTIMATED 29; GLUCOSE 111 MG/DL (70-105); POTASSIUM 4.5 MMOL/L (3.6-5.0); SODIUM 136 MMOL/L (135-145)
[2021-05-06 16:06] LABS: ALANINE AMINOTRANSFERASE 13 U/L (0-55); ALBUMIN 4.2 GM/DL (3.2-4.5); TOTAL PROTEIN 7.6 GM/DL (6.4-8.2)
== END ==
LOC: LAB FS 14:48
PROVIDERS: ATTEND Nurse Practitioner Family
DX: E03.9 Hypothyroidism, unspecified (principal); N18.32 Chronic kidney disease, stage 3b; R42 Dizziness and giddiness
CPT/HCPCS: 36415; 80053; 83735; 84443; 84484; 85025

== ENCOUNTER → 2021-05-22 | Outpatient (CLI) | payer MEDICARE ==
[~2021-05-22] MED LIST changes: +CATHETER FLUSH 10 ML SYR IV PRN; +HOLD METFORMIN - RECEIVED CONTRAST 20 ML VIAL IV SCH; +IOHEXOL 350 MG/ML 100 ML (OMNIPAQUE 350) VIAL IV ONE; +NS 100 ML (IVPB) BAG IV ONE
[2021-05-22 09:34] LABS: BASOPHILS # (AUTO) 0.1 10^3/uL (0.0-0.1); BASOPHILS % (AUTO) 1 % (0-10); EOSINOPHILS % (AUTO) 0 % (0-10); HEMATOCRIT 29 % (40-54); HEMOGLOBIN 9.4 g/dL (13.3-17.7); LYMPHOCYTES # (AUTO) 1.8 10^3/uL (1.0-4.0); LYMPHOCYTES % (AUTO) 20 % (12-44); MEAN CORPUSCULAR HEMOGLOBIN 28 pg (25-34); MEAN CORPUSCULAR HGB CONC 32 g/dL (32-36); MEAN CORPUSCULAR VOLUME 85 fL (80-99); MEAN PLATELET VOLUME 8.6 fL (9.0-12.2); MONOCYTES # (AUTO) 1.1 10^3/uL (0.0-1.0); MONOCYTES % (AUTO) 12 % (0-12); NEUTROPHILS % (AUTO) 66 % (42-75); PLATELET COUNT 338 10^3/uL (130-400); WHITE BLOOD COUNT 9.1 10^3/uL (4.3-11.0)
[2021-05-22 10:18] LABS: ALBUMIN 4.5 GM/DL (3.2-4.5); BILIRUBIN,TOTAL 0.5 MG/DL (0.1-1.0); CALCIUM 9.4 MG/DL (8.5-10.1); CREATININE SERUM 1.96 MG/DL (0.60-1.30); POTASSIUM 4.8 MMOL/L (3.6-5.0); TOTAL PROTEIN 7.8 GM/DL (6.4-8.2)
--- NOTE | 2021-05-22 15:00 | Diagnostic Imaging Report ---
INDICATION: History of colon cancer, metastatic workup. TECHNIQUE: Multiple contiguous axial images were obtained through the chest after administration of intravenous contrast. Auto Exposure Controls were utilized during the CT exam to meet ALARA standards for radiation dose reduction. COMPARISON: There is no prior chest CT for comparison. There are no enlarged axillary nodes. There are no enlarged mediastinal or hilar nodes. There are coronary artery calcifications. There are atherosclerotic changes of the aorta without evidence of aneurysm. There is no pleural or pericardial fluid. The visualized portions of the upper abdomen show a prominent left renal cyst but no acute finding. There are diffuse degenerative changes in the thoracic spine. Lung parenchymal windows demonstrate some bibasilar scarring and bronchiectatic change. There is some scarring in the upper lung green, as well. There is no consolidation or discrete pulmonary parenchymal nodule. IMPRESSION: There is parenchymal scarring in both lungs as above with some bronchiectatic change. There is no evidence of pulmonary metastatic disease or infiltrate. There is no adenopathy. Incidental note is made of coronary artery calcifications. Dictated by: Dictated on workstation # [id number]
== END ==
LOC: RAD FS 08:59
PROVIDERS: ATTEND Surgery
DX: J98.4 Other disorders of lung (principal); J47.9 Bronchiectasis, uncomplicated; I25.10 Atherosclerotic heart disease of native coronary artery without angina pectoris; C18.9 Malignant neoplasm of colon, unspecified
CPT/HCPCS: 36415; 71260; 80053; 82378; 85025; Q9967

== ENCOUNTER 2021-07-25 17:06 | Emergency (ER) | payer MEDICARE ==
[~2021-07-25] VITALS: Ht 182 cm; Wt 91.0 kg
[~2021-07-25 17:06] MED LIST changes: -CATHETER FLUSH 10 ML SYR IV PRN; +CHOL4PAC14; -CHOL4PAC2; -HOLD METFORMIN - RECEIVED CONTRAST 20 ML VIAL IV SCH; -IOHEXOL 350 MG/ML 100 ML (OMNIPAQUE 350) VIAL IV ONE; -NS 100 ML (IVPB) BAG IV ONE
[2021-07-25 18:02] LABS: BASOPHILS # (AUTO) 0.1 10^3/uL (0.0-0.1); BASOPHILS % (AUTO) 1 % (0-10); EOSINOPHILS # (AUTO) 0.2 10^3/uL (0.0-0.3); EOSINOPHILS % (AUTO) 2 % (0-10); HEMATOCRIT 29 % (40-54); HEMOGLOBIN 9.7 g/dL (13.3-17.7); LYMPHOCYTES # (AUTO) 2.7 10^3/uL (1.0-4.0); LYMPHOCYTES % (AUTO) 31 % (12-44); MEAN CORPUSCULAR HEMOGLOBIN 28 pg (25-34); MEAN CORPUSCULAR HGB CONC 34 g/dL (32-36); MEAN CORPUSCULAR VOLUME 84 fL (80-99); MEAN PLATELET VOLUME 9.4 fL (9.0-12.2); MONOCYTES # (AUTO) 1.4 10^3/uL (0.0-1.0); MONOCYTES % (AUTO) 16 % (0-12); NEUTROPHILS # (AUTO) 4.3 10^3/uL (1.8-7.8); NEUTROPHILS % (AUTO) 49 % (42-75); PLATELET COUNT 315 10^3/uL (130-400); WHITE BLOOD COUNT 8.7 10^3/uL (4.3-11.0)
--- NOTE | 2021-07-25 18:05 | ED General ---
General Chief Complaint: General Problems/Pain Stated Complaint: SOB Nursing Triage Note: Patient has presented to ER after receiving a call from the [facility] that his potassium - he thinks is low - Patient reports that he has been having back pain for the last month since having a abd surgery. [facility] and [facility] him to go to the ER because of his labs. Source of Information: Patient History of Present Illness Date Seen by Provider: Jul 25, 2021 Time Seen by Provider: 17:12 Initial Comments 89-year-old male presenting with complaints of abnormal labs earlier today when he was at the [facility]. He states in the last few days he has been having increased shortness of breath with exertion as well as pain in his lower back. He was concerned that the back pain may be related to his recent colon resection for colon cancer. He denies any fever or chills. He feels that he has been recuperating well at [facility]. He had gone to the [facility] today just for a checkup and they nevaeh blood because of his shortness of breath and general weakness with exertion. Then this evening they called him to state that he needed to be seen in the ER because his labs were abnormal. He could not remember for sure what they told him was off on his blood work. He denies having a cough, fever, chills, pain with urination, constipation. He states he has been having looser stools since having the colon resection and takes medicine to help bulk up his stools now. He also has had decreased urine output in the last several days. Timing/Duration: 3-4 Days Severity: Moderate Modifying Factors: worse with Movement Associated Systoms: No Chest Pain, No Cough, No Diaphoresis, No Fever/Chills, No Headaches, No Loss of Appetite; Malaise; No Nausea/Vomiting, No Rash, No Seizure; Shortness of Air (With exertion); No Syncope; Weakness (Generalized and worse with exertion) Allergies and Home Medications Allergies Coded Allergies: Sulfa (Sulfonamide Antibiotics) (Verified Allergy, Unknown, 05/24/18) Patient Home Medication List Home Medication List Reviewed: Yes Cholestyramine (with Sugar) (Cholestyramine Packet) 4 Gm Powd.pack, (Reported) Entered as Reported by: BABATUNDE MORRELL on 05/24/18 1356 Clonidine HCl (Clonidine HCl) 0.1 Mg Tablet, 0.1 MG PO Q12H PRN for BLOOD PRESSURE Prescribed by: JOSE ELIAS MIRANDA on 05/24/18 1534 Diltiazem HCl (Cardizem Cd) 120 Mg Cap.er.24h, 120 MG PO DAILY Prescribed by: TORIBIO LANDIN on 05/06/21 0751 Isosorbide Mononitrate (Isosorbide Mononitrate ER) 60 Mg Tab, (Reported) Entered as Reported by: BABATUNDE MORRELL on 05/24/18 1356 Levothyroxine Sodium (Levothyroxine Sodium) 50 Mcg Tablet, (Reported) Entered as Reported by: BABATUNDE MORRELL on 05/24/18 135 Lisinopril (Lisinopril) 10 Mg Tablet, (Reported) Entered as Reported by: BABATUNDE MORRELL on 05/24/18 135 Metoprolol Tartrate (Metoprolol Tartrate) 25 Mg Tablet, (Reported) Entered as Reported by: BABATUNDE MORRELL on 05/24/18 1356 Potassium Chloride (Potassium Chloride) 10 Meq Tablet.er, (Reported) Entered as Reported by: BABATUNDE MORRELL on 05/24/18 1356 Ranolazine (Ranolazine ER) 500 Mg Tab.er.12h, (Reported) Entered as Reported by: BABATUNDE MORRELL on 05/24/18 1356 Trazodone HCl (Trazodone HCl) 50 Mg Tablet, (Reported) Entered as Reported by: BABATUNDE MORRELL on 05/24/18 1356 Review of Systems Review of Systems Constitutional: see HPI EENTM: no symptoms reported Respiratory: see HPI Cardiovascular: No chest pain, No edema, No palpitations Gastrointestinal: No abdominal pain, No nausea, No vomiting Genitourinary: decreased output Musculoskeletal: back pain Skin: No rash Psychiatric/Neurological: Denies Headache Hematologic/Lymphatic: Denies Blood Clots; Easy Bleeding (taking xarelto), Easy Bruising (taking xarelto) Immunological/Allergic: no symptoms reported Past Ekzsezo-Ymybxp-Hbskez Hx Patient Social History Tobacco Use?: No Use of E-Cig and/or Vaping dev: No Substance use?: No Alcohol Use?: No Pt feels they are or have been: No Immunizations Up To Date First/Initial COVID19 Vaccinat: UNKNOWN DATE Second COVID19 Vaccination Daniele: UNKNOWN DATE Seasonal Allergies Seasonal Allergies: No Past Medical History Surgery/Hospitalization HX: Paroxysmal Atrial Fibrillation, Cholecystectomy, hypertension, hypothyroid, adenocarcinoma of the colon Surgeries: Yes Eye Surgery, Gallbladder Respiratory: No Cardiac: Yes Hypertension Neurological: No Sexually Transmitted Disease: No HIV/AIDS: No Genitourinary: No Gastrointestinal: No Abdominal Hernia Musculoskeletal: No Endocrine: No Hypothyroidsim HEENT: No Cancer: No Psychosocial: No Integumentary: No Blood Disorders: No Physical Exam Vital Signs Vital Signs - First Documented 07/25/21 17:17 Temp 36.1 Pulse 82 Resp 16 B/P (MAP) 149/76 (100) Pulse Ox 99 O2 Delivery Room Air Capillary Refill : Height, Weight, BMI Height: 5'10.00" Weight: 210lbs. 0oz. 95.567126md; 27.00 BMI Method:Stated General Appearance: No Apparent Distress, WD/WN HEENT: PERRL/EOMI, Pharynx Normal Neck: Full Range of Motion, Normal Inspection, Non Tender, Supple Respiratory: Chest Non Tender, Lungs Clear, Normal Breath Sounds, No Accessory Muscle Use, No Respiratory Distress Cardiovascular: Regular Rate, Rhythm, Normal Peripheral Pulses Gastrointestinal: Normal Bowel Sounds, No Pulsatile Mass, Non Tender, Soft Rectal: Deferred Back: No CVA Tenderness, No Vertebral Tenderness Extremity: Normal Capillary Refill, Normal Inspection, Non Tender, No Calf Tenderness, No Pedal Edema Neurologic/Psychiatric: Alert, Oriented x3, importer exporter II-XII Norm as Tested Skin: Normal Color, Warm/Dry Progress/Results/Core Measures Suspected Sepsis SIRS Temperature: Pulse: 82 Respiratory Rate: 16 Laboratory Tests 07/25/21 17:39: White Blood Count 8.7 Blood Pressure 149 /76 Mean: 100 Laboratory Tests 07/25/21 17:39: Creatinine 2.76H, Platelet Count 315, Total Bilirubin 0.2 07/25/21 18:45: INR Comment 1.0 07/25/21 21:12: Creatinine 2.65H Results/Orders Lab Results Laboratory Tests Test 07/25/21 17:39 07/25/21 18:45 07/25/21 19:08 07/25/21 21:12 Range/Units White Blood Count 8.7 4.3-11.0 10^3/uL Red Blood Count 3.45 L 4.30-5.52 10^6/uL Hemoglobin 9.7 L 13.3-17.7 g/dL Hematocrit 29 L 40-54 % Mean Corpuscular Volume 84 80-99 fL Mean Corpuscular Hemoglobin 28 25-34 pg Mean Corpuscular Hemoglobin Concent 34 32-36 g/dL Red Cell Distribution Width 18.5 H 10.0-14.5 % Platelet Count 315 130-400 10^3/uL Mean Platelet Volume 9.4 9.0-12.2 fL Immature Granulocyte % (Auto) 1 % Neutrophils (%) (Auto) 49 42-75 % Lymphocytes (%) (Auto) 31 12-44 % Monocytes (%) (Auto) 16 H 0-12 % Eosinophils (%) (Auto) 2 0-10 % Basophils (%) (Auto) 1 0-10 % Neutrophils # (Auto) 4.3 1.8-7.8 10^3/uL Lymphocytes # (Auto) 2.7 1.0-4.0 10^3/uL Monocytes # (Auto) 1.4 H 0.0-1.0 10^3/uL Eosinophils # (Auto) 0.2 0.0-0.3 10^3/uL Basophils # (Auto) 0.1 0.0-0.1 10^3/uL Immature Granulocyte # (Auto) 0.0 0.0-0.1 10^3/uL Sodium Level 126 L 129 L 135-145 MMOL/L Potassium Level 6.7 #*H 6.5 *H 3.6-5.0 MMOL/L Chloride Level 101 105 98-107 MMOL/L Carbon Dioxide Level 12 L 12 L 21-32 MMOL/L Anion Gap 13 12 5-14 MMOL/L Blood Urea Nitrogen 46 H 46 H 7-18 MG/DL Creatinine 2.76 H 2.65 H 0.60-1.30 MG/DL Estimat Glomerular Filtration Rate 21 22 BUN/Creatinine Ratio 17 17 Glucose Level 105 121 H 70-105 MG/DL Calcium Level 9.1 9.1 8.5-10.1 MG/DL Corrected Calcium 8.9 8.5-10.1 MG/DL Magnesium Level 2.1 1.6-2.4 MG/DL Total Bilirubin 0.2 0.1-1.0 MG/DL Aspartate Amino Transf (AST/SGOT) 13 5-34 U/L Alanine Aminotransferase (ALT/SGPT) 8 0-55 U/L Alkaline Phosphatase 75 40-136 U/L C-Reactive Protein < 0.30 <0.50 MG/DL Pro-B-Type Natriuretic Peptide 271.3 H <75.0 PG/ML Total Protein 7.6 6.4-8.2 GM/DL Albumin 4.2 3.2-4.5 GM/DL Lipase 84 H 8-78 U/L Smear Scan OK Prothrombin Time 14.0 12.2-14.7 SEC INR Comment 1.0 0.8-1.4 Activated Partial Thromboplast Time 33 24-35 SEC Urine Color YELLOW Urine Clarity CLEAR Urine pH 5.5 5-9 Urine Specific Maynard 1.020 1.016-1.022 Urine Protein NEGATIVE NEGATIVE Urine Glucose (UA) NEGATIVE NEGATIVE Urine Ketones NEGATIVE NEGATIVE Urine Nitrite NEGATIVE NEGATIVE Urine Bilirubin NEGATIVE NEGATIVE Urine Urobilinogen 0.2 < = 1.0 MG/DL Urine Leukocyte Esterase NEGATIVE NEGATIVE Urine RBC (Auto) NEGATIVE NEGATIVE Urine RBC NONE /HPF Urine WBC 0-2 /HPF Urine Squamous Epithelial Cells 0-2 /HPF Urine Crystals NONE /LPF Urine Bacteria NEGATIVE /HPF Urine Casts PRESENT /LPF Urine Hyaline Casts 2-5 H /LPF Urine Mucus SMALL H /LPF Urine Culture Indicated NO My Orders Orders - CARI POWERS MD Comprehensive Metabolic Panel (07/25/21 17:38) Lipase (07/25/21 17:38) Ua Culture If Indicated (07/25/21 17:38) Ed Iv/Invasive Line Start (07/25/21 17:38) Cbc With Automated Diff (07/25/21 17:38) Protime With Inr (07/25/21 17:38) Partial Thromboplastin Time (07/25/21 17:38) Magnesium (07/25/21 17:38) Crp Fs (07/25/21 17:38) Ct Chest/Abdomen/Pelvis Wo (07/25/21 18:03) Probnp Fs (07/25/21 18:03) Ekg Tracing (07/25/21 18:13) Monitor-Rhythm Ecg Trace Only (07/25/21 18:13) Ns Iv 1000 Ml (Sodium Chloride 0.9%) (07/25/21 18:55) Calcium Chloride 10% Injection (Calcium (07/25/21 19:57) D50w (Emergency) Syringe (Dextrose 50% 5 (07/25/21 19:57) Insulin (Regular) Human (Novolin R (Per (07/25/21 19:57) Ranolazine Er Tablet (Ranexa Er Tablet) (07/25/21 20:16) Pantoprazole Tablet (Protonix Tablet) (07/25/21 20:16) Tamsulosin Capsule (Flomax Capsule) (07/25/21 20:16) Basic Metabolic Panel (07/25/21 20:16) Calc Gluc 1 Gm/100 Ml Ivpb (Calcium Gluc (07/25/21 20:23) Medications Given in ED Current Medications Medications Dose Ordered Sig/Mary Route Start Time Stop Time Status Last Admin Dose Admin Calcium Gluconate/ Sodium Chloride 100 ml @ ud STK-MED ONCE IV 07/25/21 20:23 07/25/21 20:26 DC 07/25/21 20:39 200 MLS/HR Vital Signs/I&O 07/25/21 07/25/21 17:17 21:26 Temp 36.1 Pulse 82 73 Resp 16 17 B/P (MAP) 149/76 (100) 130/50 Pulse Ox 99 99 O2 Delivery Room Air Room Air Capillary Refill : Blood Pressure Mean: 100 Progress Note #1: Progress Note Recheck his labs to see what his electrolytes and blood counts show today. [facility] can give us any records. Order CT angiogram of the chest and nonangiogram of abdomen pelvis with IV contrast. Progress Note #2: Progress Note [facility] showed [facility] had acute on chronic renal failure with a creatinine up to 2.91 and potassium of 7.4. Based on this we will order a liter of normal saline for hydration. Awaiting labs here still. We will cancel the CT angiogram and IV contrast studies and order CT without contrast to see if there is any abnormality in the chest abdomen pelvis to account for his shortness of breath with exertion and low back pain. Also add on a proBNP in case there is any evidence of heart failure that might be contributing to his dyspnea on exertion. Progress Note #3: Progress Note Labs here came back showing his potassium was 6.7, creatinine was 2.76, sodium 128, chronic anemia with hemoglobin of 9.7. CT scan did not show any acute significant abnormality in the chest abdomen or pelvis to account for his symptoms. Progress Note #4: Progress Note While I was in the procedure on the nerve the patient I had the nurses call to try and start initiating a transfer process. The still needed to speak with me directly prior to being able to initiate that process. At 1943 I called back and spoke with GENARO Conklin, he took additional information about the patient and indication for transfer. With not having any local nephrology service and patient requesting to come to because of recent surgery procedure there he will check with the admitting doctor of the day and get back with us. 2017 Rubin LAM called back with accepting physician of Dr. Dontae Pehlan. They will call back [facility] room assignment. In meantime they did want pt to get Calcium Gluconate, Dextrose and Regular Insulin to help with his high potassium. Will redraw his potassium prior to transfer to . Progress Note #5: Time: 21:48 Progress Note Repeat chemistry shows sodium has improved to 129, potassium down to 6.5, creatinine levels show no evidence of renal dysfunction. Improved to 2.65. Updated med transfer center. Patient's had just left with EMS a few minutes prior to these results being back ECG Initial ECG Impression Date: Jul 25, 2021 Initial ECG Impression Time: 18:47 Initial ECG Rate: 69 Initial ECG Rhythm: Normal Sinus Initial ECG Comparisson: Unchanged Comment Normal sinus rhythm with first-degree AV block and a heart rate of 69 bpm. NE interval [address] elevation. QT interval 373 ms with a QTc interval 392 ms. Overall appears similar to some prior tracings in the system. Diagnostic Imaging Diagonstic Imaging: CT Plain Films/CT/US/NM/MRI: chest, abdomen, pelvis Comments [facility] [place] NAME: JUSTO HANSON MED REC#: [id number] PT STATUS: REG ER : 1932 PHYSICIAN: CARI POWERS MD ADMIT DATE: 07/25/21/ER FS Signed Date of Exam:07/25/21 CT CHEST/ABDOMEN/PELVIS WO PROCEDURE: CT chest, abdomen, and pelvis without contrast. TECHNIQUE: Multiple contiguous axial images were obtained through the chest, abdomen, and pelvis without the use of intravenous contrast. Auto Exposure Controls were utilized during the CT exam to meet ALARA standards for radiation dose reduction. INDICATION: Shortness of air with exertion, abdominal pain, low back pain. COMPARISON: 05/22/2021 and 04/23/2021 FINDINGS: CT CHEST: No abnormality within the central airway. No pneumonia or edema. Subpleural reticulations in the lung bases are unchanged and most compatible with areas of fibrosis that are likely senescent in etiology. No honeycombing. No pleural effusion or pneumothorax. No supraclavicular or axillary lymphadenopathy. No mediastinal or hilar lymphadenopathy. Severe coronary artery calcifications and aortic calcifications are unchanged. No concerning focal osseous lesions. CT ABDOMEN AND PELVIS: No free intraperitoneal air or fluid. Assessment of abdominal viscera is suboptimal without IV contrast. Allowing for this, the liver, spleen and pancreas have no acute abnormality. Cholecystectomy without biliary duct dilatation. No adrenal mass. Exophytic cysts on both kidneys are unchanged. There is a nonobstructing 2 mm stone in the lower pole of the right kidney. Vascular calcifications are present in the left renal pelvis. No ureteral stones. Urinary bladder is normally filled. Prostate is not enlarged. No bowel obstruction or pericolonic inflammatory change. Postoperative changes of right hemicolectomy. Severe diverticulosis throughout the descending and sigmoid colon, but no features of diverticulitis. Severe atherosclerotic plaquing throughout the aorta. No abdominal or pelvic lymphadenopathy. Small fat-containing indirect inguinal hernias are unchanged. IMPRESSION: 1. No acute process in the chest, abdomen or pelvis. 2. Colonic diverticulosis without diverticulitis. 3. 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 Dontae Phelan. They will call back with a room assignment but want us to recheck his potassium after he gets Calcium Gluconate and Dextrose with Insulin. He does not have peaked t waves or arrhythmia currently Transfer Facility: [facility] Method of Transfer: EMS Departure-Patient Inst. Referrals: SELF,VENESSA LÓPEZ (PCP/Family) Primary Care Physician CARI POWERS MD Jul 25, 2021 18:05
[2021-07-25 18:16] LABS: SMEAR SCAN COMMENT OK
[2021-07-25 18:50] LABS: SODIUM 126 MMOL/L (135-145)
[2021-07-25 18:51] LABS: CARBON DIOXIDE 12 MMOL/L (21-32); CHLORIDE 101 MMOL/L (98-107)
--- NOTE | 2021-07-25 18:51 | Diagnostic Imaging Report ---
PROCEDURE: CT chest, abdomen, and pelvis without contrast. TECHNIQUE: Multiple contiguous axial images were obtained through the chest, abdomen, and pelvis without the use of intravenous contrast. Auto Exposure Controls were utilized during the CT exam to meet ALARA standards for radiation dose reduction. INDICATION: Shortness of air with exertion, abdominal pain, low back pain. COMPARISON: 05/22/2021 and 04/23/2021 FINDINGS: CT CHEST: No abnormality within the central airway. No pneumonia or edema. Subpleural reticulations in the lung bases are unchanged and most compatible with areas of fibrosis that are likely senescent in etiology. No honeycombing. No pleural effusion or pneumothorax. No supraclavicular or axillary lymphadenopathy. No mediastinal or hilar lymphadenopathy. Severe coronary artery calcifications and aortic calcifications are unchanged. No concerning focal osseous lesions. CT ABDOMEN AND PELVIS: No free intraperitoneal air or fluid. Assessment of abdominal viscera is suboptimal without IV contrast. Allowing for this, the liver, spleen and pancreas have no acute abnormality. Cholecystectomy without biliary duct dilatation. No adrenal mass. Exophytic cysts on both kidneys are unchanged. There is a nonobstructing 2 mm stone in the lower pole of the right kidney. Vascular calcifications are present in the left renal pelvis. No ureteral stones. Urinary bladder is normally filled. Prostate is not enlarged. No bowel obstruction or pericolonic inflammatory change. Postoperative changes of right hemicolectomy. Severe diverticulosis throughout the descending and sigmoid colon, but no features of diverticulitis. Severe atherosclerotic plaquing throughout the aorta. No abdominal or pelvic lymphadenopathy. Small fat-containing indirect inguinal hernias are unchanged. IMPRESSION: 1. No acute process in the chest, abdomen or pelvis. 2. Colonic diverticulosis without diverticulitis. 3. Severe atherosclerosis and coronary artery calcification Dictated by: Dictated on workstation # [id number]
[2021-07-25 18:52] LABS: ALANINE AMINOTRANSFERASE 8 U/L (0-55); ALKALINE PHOSPHATASE 75 U/L (40-136); BILIRUBIN,TOTAL 0.2 MG/DL (0.1-1.0); BUN/CREATININE RATIO 17; CALCIUM 9.1 MG/DL (8.5-10.1); CREATININE SERUM 2.76 MG/DL (0.60-1.30); GFR ESTIMATED 21; GLUCOSE 105 MG/DL (70-105); MAGNESIUM 2.1 MG/DL (1.6-2.4); TOTAL PROTEIN 7.6 GM/DL (6.4-8.2)
[2021-07-25 18:53] LABS: ALBUMIN 4.2 GM/DL (3.2-4.5); LIPASE 84 U/L (8-78); POTASSIUM 6.7 MMOL/L (3.6-5.0)
[2021-07-25] MEDS ORDERED: NS IV 1000 ML 1,000 ML IV STA (18:55)
[2021-07-25 19:16] LABS: BILIRUBIN,URINE NEGATIVE (NEGATIVE); CLARITY,URINE CLEAR; COLOR,URINE YELLOW; GLUCOSE, URINE (UA) NEGATIVE (NEGATIVE); KETONES,URINE NEGATIVE (NEGATIVE); LEUKOCYTE ESTERASE ,URINE NEGATIVE (NEGATIVE); NITRITE,URINE NEGATIVE (NEGATIVE); PH,URINE 5.5 (5-9); PROTEIN,URINE NEGATIVE (NEGATIVE)
[2021-07-25 19:21] LABS: BACTERIA,URINE NEGATIVE /HPF; SQUAMOUS EPITHELIAL CELL,UR 0-2 /HPF; WBC,URINE 0-2 /HPF
[2021-07-25] MEDS ORDERED: inSUlin (REGULAR) HUMAN 1 UNIT/0.01 ML (CHARGE PER UNIT) IV STA (19:57)
[2021-07-25] MEDS ORDERED: CALCIUM CHLORIDE 1 GM/10 ML (IMS) SYR INJ STA (19:57)
[2021-07-25] MEDS ORDERED: DEXTROSE 50% 50 ML (IMS) SYR IV STA (19:57)
[2021-07-25] MEDS ORDERED: TAMSULOSIN 0.4 MG (FLOMAX) CAP PO STA (20:16)
[2021-07-25] MEDS ORDERED: RANOLAZINE ER 500 MG TAB (RANEXA) PO STA (20:16)
[2021-07-25] MEDS ORDERED: PANTOPRAZOLE 40 MG (PROTONIX) TAB PO STA (20:16)
[2021-07-25] MEDS ORDERED: CALC GLUC 1 GM/100 ML IVPB 100 ML IV ONE (20:23)
[2021-07-25 21:26] VITALS: BP 130/50
[2021-07-25 21:47] LABS: POTASSIUM 6.5 MMOL/L (3.6-5.0)
[2021-07-25 21:48] LABS: CALCIUM 9.1 MG/DL (8.5-10.1); CREATININE SERUM 2.65 MG/DL (0.60-1.30)
== END 2021-07-25 21:36 | disposition short-term general hospital (02) ==
LOC: EDUNIT# 17:06 → ER FS 17:07
DX: I12.9 Hypertensive chronic kidney disease with stage 1 through stage 4 chronic kidney disease, or unspecified chronic kidney disease (principal); N18.4 Chronic kidney disease, stage 4 (severe); E87.5 Hyperkalemia; R06.00 Dyspnea, unspecified
CPT/HCPCS: 36415; 71250; 74176; 80048; 80053; 81000; 83690; 83735; 83880; 85025; 85610; 85730; 86141; 93005; 93041; 96361; 96365; 96375

== ENCOUNTER → 2021-08-04 | Outpatient (CLI) | payer MEDICARE ==
[2021-08-04 16:22] LABS: BACTERIA,URINE FEW /HPF; BILIRUBIN,URINE NEGATIVE (NEGATIVE); CLARITY,URINE CLEAR; COLOR,URINE YELLOW; GLUCOSE, URINE (UA) NEGATIVE (NEGATIVE); KETONES,URINE NEGATIVE (NEGATIVE); LEUKOCYTE ESTERASE ,URINE NEGATIVE (NEGATIVE); NITRITE,URINE NEGATIVE (NEGATIVE); PROTEIN,URINE NEGATIVE (NEGATIVE); RBC,URINE 25-50 /HPF
[2021-08-04 16:23] LABS: GRANULAR CASTS,URINE RARE /LPF
== END ==
LOC: PVFS 16:10
PROVIDERS: ATTEND Family Medicine
DX: N18.32 Chronic kidney disease, stage 3b (principal); R10.9 Unspecified abdominal pain
CPT/HCPCS: 81000; 87088

== ENCOUNTER → 2021-12-11 | Outpatient (CLI) | payer MEDICARE ==
[~2021-12-11] MED LIST changes: -CHOL4PAC14; +CHOL4POW4
--- NOTE | 2021-12-11 16:42 | Diagnostic Imaging Report ---
INDICATION: Hemoptysis. Comparison with CT chest from 07/25/2021. FINDINGS: There does appear to be mild bronchiectasis in the lung bases more prominent in the right middle lobe and lower lung. No infiltrates or masses are seen. There is mild hyperaeration. The heart upper limits of normal. No evidence of pulmonary edema. No pneumothorax or pleural effusion. IMPRESSION: Right lower lobe bronchiectasis. No masses or consolidated infiltrates noted. Dictated by: Dictated on workstation # [id number]
== END ==
LOC: RAD FS 13:09
PROVIDERS: ATTEND Family Medicine
DX: R04.2 Hemoptysis (principal); J47.9 Bronchiectasis, uncomplicated
CPT/HCPCS: 71046

== ENCOUNTER 2022-07-04 20:20 | Outpatient (CLI) | payer MEDICARE | END 2022-07-05 06:00 | disposition home or self-care (01) | LOC: SLEEP 20:20 | PROVIDERS: ATTEND Nurse Practitioner | DX: G47.33 Obstructive sleep apnea (adult) (pediatric) (principal); G47.10 Hypersomnia, unspecified; G47.00 Insomnia, unspecified | CPT/HCPCS: 95811 ==

== ENCOUNTER 2022-09-23 22:08 | Emergency (ER) | payer MEDICARE ==
[~2022-09-23] VITALS: Ht 182.8 cm; Wt 97.9 kg
[2022-09-23 22:27] LABS: BASOPHILS # (AUTO) 0.1 10^3/uL (0.0-0.1); BASOPHILS % (AUTO) 1 % (0-10); EOSINOPHILS # (AUTO) 0.3 10^3/uL (0.0-0.3); EOSINOPHILS % (AUTO) 3 % (0-10); HEMATOCRIT 37 % (40-54); LYMPHOCYTES # (AUTO) 2.2 10^3/uL (1.0-4.0); LYMPHOCYTES % (AUTO) 25 % (12-44); MEAN CORPUSCULAR HEMOGLOBIN 30 pg (25-34); MEAN CORPUSCULAR HGB CONC 33 g/dL (32-36); MEAN CORPUSCULAR VOLUME 92 fL (80-99); MEAN PLATELET VOLUME 10.1 fL (9.0-12.2); MONOCYTES # (AUTO) 1.2 10^3/uL (0.0-1.0); MONOCYTES % (AUTO) 14 % (0-12); NEUTROPHILS # (AUTO) 4.8 10^3/uL (1.8-7.8); NEUTROPHILS % (AUTO) 56 % (42-75); PLATELET COUNT 283 10^3/uL (130-400); WHITE BLOOD COUNT 8.6 10^3/uL (4.3-11.0)
--- NOTE | 2022-09-23 22:32 | ED Chest Pain ---
General Chief Complaint: Chest Pain Stated Complaint: CHEST PAIN Nursing Triage Note: Patient arrives via EMS from [facility] in [facility]. EMS state that the patient has had chest pain for approximately 1 week. Patient has a history of a-fib that has been rate controlled. EMS reports that the patient was A-Fib with RVR. EMS started an 18g in the right hand. EMS gave 20mg of Cardizem IV. Patient reports that he is feeling better. Source: patient, EMS, alf records History of Present Illness Date Seen by Provider: Sep 23, 2022 Time Seen by Provider: 22:10 Initial Comments 89-year-old male presenting with complaints of chest pain off and on for the last week. He does have a history of atrial fibrillation that is usually rate controlled. He tonight was complaining of increased chest pain so EMS was activated. He was initially having a heart rate in the 150s atrial fibrillation with RVR for EMS. They gave 20 mg of IV Cardizem and the patient's heart rate is now down to 70-90. His blood pressure is good at 118/54. Oxygen saturation is 93 to 95% on room air. He has afebrile and not having any other complaints. He states that he is due for an iron infusion this next week and is to go to [facility] for that. On arrival to ED he denies having chest pain currently. Timing/Duration: 6-7 days Severity/Quality: moderate, pressure Location: substernal Radiation: no radiation Activities at Onset: none Prior CP/Workup: angina, cardiac cath, echocardiography, stress test Modifying Factors: worse with exercise ASA po RESIDENTIAL AIDE: No NTG SL RESIDENTIAL AIDE: No Associated Symptoms: No abdominal pain, No back pain, No diaphoresis, No dizziness, No edema; fatigue; No fever/chills, No headache, No heartburn, No nausea/vomiting, No rash, No swelling/lump in chest, No syncope Allergies and Home Medications Allergies Coded Allergies: Sulfa (Sulfonamide Antibiotics) (Verified Allergy, Unknown, 05/24/18) Patient Home Medication List Home Medication List Reviewed: Yes Cholestyramine (with Sugar) (Cholestyramine Packet) 4 Gm Powd.pack, (Reported) Entered as Reported by: BABATUNDE MORRELL on 05/24/18 0222 Clonidine HCl (Clonidine HCl) 0.1 Mg Tablet, 0.1 MG PO Q12H PRN for BLOOD PRESSURE Prescribed by: JOSE ELIAS MIRANDA on 05/24/18 1534 Diltiazem HCl (Cardizem Cd) 120 Mg Cap.er.24h, 120 MG PO DAILY Prescribed by: TORIBIO LANDIN on 05/06/21 0751 Isosorbide Mononitrate (Isosorbide Mononitrate ER) 60 Mg Tab, (Reported) Entered as Reported by: BABATUNDE MORRELL on 05/24/18 1356 Levothyroxine Sodium (Levothyroxine Sodium) 50 Mcg Tablet, (Reported) Entered as Reported by: BABATUNDE MORRELL on 05/24/18 1356 Lisinopril (Lisinopril) 10 Mg Tablet, (Reported) Entered as Reported by: BABATUNDE MORRELL on 05/24/18 1356 Metoprolol Tartrate (Metoprolol Tartrate) 25 Mg Tablet, (Reported) Entered as Reported by: BABATUNDE MORRELL on 05/24/18 1356 Potassium Chloride (Potassium Chloride) 10 Meq Tablet.er, (Reported) Entered as Reported by: BABATUNDE MORRELL on 05/24/18 1356 Ranolazine (Ranolazine ER) 500 Mg Tab.er.12h, (Reported) Entered as Reported by: BABATUNDE MORRELL on 05/24/18 1356 Trazodone HCl (Trazodone HCl) 50 Mg Tablet, (Reported) Entered as Reported by: BABATUNDE MORRELL on 05/24/18 1356 Review of Systems Review of Systems Constitutional: No chills, No fever EENTM: No Symptoms Reported Respiratory: No Symptoms Reported Cardiovascular: See HPI Gastrointestinal: No Symptoms Reported Genitourinary: No Symptoms Reported Musculoskeletal: no symptoms reported Skin: no symptoms reported Psychiatric/Neurological: No Symptoms Reported Past Obywwfz-Gqfome-Gnattt Hx Patient Social History Tobacco Use?: No Substance use?: No Alcohol Use?: No Pt feels they are or have been: No Immunizations Up To Date First/Initial COVID19 Vaccinat: UNKNOWN DATE Second COVID19 Vaccination Daniele: UNKNOWN DATE Seasonal Allergies Seasonal Allergies: No Past Medical History Surgery/Hospitalization HX: A-Fib Surgeries: Yes Eye Surgery, Gallbladder Respiratory: No Cardiac: Yes Hypertension Neurological: No Sexually Transmitted Disease: No HIV/AIDS: No Genitourinary: No Gastrointestinal: No Abdominal Hernia Musculoskeletal: No Endocrine: No Hypothyroidsim HEENT: No Cancer: No Psychosocial: No Integumentary: No Blood Disorders: No Physical Exam Vital Signs Vital Signs - First Documented 09/23/22 22:11 Temp 36.5 Pulse 86 Resp 19 B/P (MAP) 123/91 (102) Pulse Ox 93 O2 Delivery Room Air Capillary Refill : Less Than 3 Seconds Height, Weight, BMI Height: 5'10.00" Weight: 210lbs. 0oz. 95.538409sn; 29.00 BMI Method:Stated General Appearance: No Apparent Distress, WD/WN HEENT: PERRL/EOMI, Pharynx Normal Respiratory: Chest Non Tender, Lungs Clear, Normal Breath Sounds, No Accessory Muscle Use, No Respiratory Distress Cardiovascular: Normal Peripheral Pulses, Irregularly Irregular (Heart rate 70- 90 and irregular) Gastrointestinal: Normal Bowel Sounds, No Pulsatile Mass, Non Tender, Soft Rectal: Deferred Neurologic/Psychiatric: Alert Skin: Normal Color, Warm/Dry Progress/Results/Core Measures Results/Orders Lab Results Laboratory Tests Test 09/23/22 22:15 Range/Units White Blood Count 8.6 4.3-11.0 10^3/uL Red Blood Count 3.98 L 4.30-5.52 10^6/uL Hemoglobin 12.0 L 13.3-17.7 g/dL Hematocrit 37 L 40-54 % Mean Corpuscular Volume 92 80-99 fL Mean Corpuscular Hemoglobin 30 25-34 pg Mean Corpuscular Hemoglobin Concent 33 32-36 g/dL Red Cell Distribution Width 17.2 H 10.0-14.5 % Platelet Count 283 130-400 10^3/uL Mean Platelet Volume 10.1 9.0-12.2 fL Immature Granulocyte % (Auto) 1 % Neutrophils (%) (Auto) 56 42-75 % Lymphocytes (%) (Auto) 25 12-44 % Monocytes (%) (Auto) 14 H 0-12 % Eosinophils (%) (Auto) 3 0-10 % Basophils (%) (Auto) 1 0-10 % Neutrophils # (Auto) 4.8 1.8-7.8 10^3/uL Lymphocytes # (Auto) 2.2 1.0-4.0 10^3/uL Monocytes # (Auto) 1.2 H 0.0-1.0 10^3/uL Eosinophils # (Auto) 0.3 0.0-0.3 10^3/uL Basophils # (Auto) 0.1 0.0-0.1 10^3/uL Immature Granulocyte # (Auto) 0.1 0.0-0.1 10^3/uL Prothrombin Time 19.7 H 12.2-14.7 SEC INR Comment 1.6 H 0.8-1.4 Activated Partial Thromboplast Time 37 H 24-35 SEC Sodium Level 134 L 135-145 MMOL/L Potassium Level 4.7 3.6-5.0 MMOL/L Chloride Level 101 98-107 MMOL/L Carbon Dioxide Level 19 L 21-32 MMOL/L Anion Gap 14 5-14 MMOL/L Blood Urea Nitrogen 26 H 7-18 MG/DL Creatinine 2.00 H 0.60-1.30 MG/DL Estimat Glomerular Filtration Rate 31 BUN/Creatinine Ratio 13 Glucose Level 158 H 70-105 MG/DL Calcium Level 8.8 8.5-10.1 MG/DL Corrected Calcium 9.0 8.5-10.1 MG/DL Magnesium Level 2.4 1.6-2.4 MG/DL Total Bilirubin 0.4 0.1-1.0 MG/DL Aspartate Amino Transf (AST/SGOT) 29 5-34 U/L Alanine Aminotransferase (ALT/SGPT) 26 0-55 U/L Alkaline Phosphatase 88 40-136 U/L Troponin I < 0.30 <0.30 NG/ML Pro-B-Type Natriuretic Peptide 218.3 <450.0 PG/ML Total Protein 7.2 6.4-8.2 GM/DL Albumin 3.8 3.2-4.5 GM/DL My Orders Orders - CARI POWERS MD Chest 1 View Ap/Pa Only (09/23/22 22:20) Cbc With Automated Diff (09/23/22 22:22) Magnesium (09/23/22 22:22) Ekg Tracing (09/23/22 22:22) Comprehensive Metabolic Panel (09/23/22 22:22) Protime With Inr (09/23/22 22:22) Partial Thromboplastin Time (09/23/22 22:22) O2 (09/23/22 22:22) Monitor-Rhythm Ecg Trace Only (09/23/22 22:22) Ed Iv/Invasive Line Start (09/23/22 22:22) Troponin I Fs (09/23/22 22:22) Probnp Fs (09/23/22 22:22) Vital Signs/I&O 09/23/22 09/23/22 22:11 23:18 Temp 36.5 Pulse 86 90 Resp 19 18 B/P (MAP) 123/91 (102) 139/68 Pulse Ox 93 93 O2 Delivery Room Air Room Air Blood Pressure Mean: 102 Progress Progress Note #1: Progress Note Potential diagnosis of uncontrolled paroxysmal atrial fibrillation, myocardial infarction, acute heart failure, electrolyte imbalance, iron deficient anemia. Obtain electrocardiogram to document patient's heart rate and rhythm. Placed on cardiac carpenter helper to watch his heart rate and rhythm on the monitor. On my initial interpretation is heart rate is irregular on the monitor and her heart rate is varying from 70 to 90 bpm. Peripheral IV established by EMS. Send labs for complete blood count, magnesium, comprehensive metabolic profile, coagulation factors, troponin, proBNP. 1 view chest x-ray to look for signs of heart failure, pneumonia, fluid buildup. As patient is not having any pain currently will continue to monitor. He already takes Xarelto as a blood thinner so no aspirin was given. Progress Note #2: Time: 23:14 Progress Note On my personal interpretation and review of his 1 view chest x-ray he has some stable cardiomegaly and chronic interstitial opacities. I did not appreciate an acute effusion or significant change from his last chest x-ray in April 2021. His troponin was negative and not elevated to indicate acute myocardial infarction or acute coronary syndrome. He does have chronic renal insufficiency but his creatinine looks good tonight at 2.0. His other electrolytes are stable without acute significant abnormality. He did not have an elevated white blood cell count. His hemoglobin was low normal at 12. His electrocardiogram showed atrial fibrillation but his heart rate has been in the 70s to 90s. On the cardiac carpenter helper he continues to have atrial fibrillation but is rate controlled. Blood pressure remains good at 129/68. Oxygen saturation is also stable. Will discharge back to [facility] and encourage him to continue to take his regular medications. Check back with mixer lever operator and primary care if continuing to have chest discomfort as he may need adjustment on his sotalol or other medications. Initial ECG Impression Date: Sep 23, 2022 Initial ECG Impression Time: 22:14 Initial ECG Rate: 86 Initial ECG Rhythm: A Fib/Flutter Initial ECG Comparisson: Unchanged Comment On my initial interpretation and review his electrocardiogram shows atrial fibrillation with a heart rate of 86 bpm. He has no acute ST elevation. QT interval 389 ms with a QTc interval 433 ms. Overall appears similar to tracing from May 06, 2021 when he had atrial fibrillation with RVR. He did have a tracing from July 25, 2021 where he was sinus rhythm. Diagnostic Imaging Diagonstic Imaging: Xray Plain Films/CT/US/NM/MRI: chest Reviewed: Reviewed by Me Departure Impression Primary Impression: Paroxysmal atrial fibrillation with rapid ventricular response Disposition: HOME, SELF-CARE Condition: Stable Departure-Patient Inst. Decision time for Depature: 23:16 Referrals: VENESSA HARRIS MD (PCP/Family) Primary Care Physician Patient Instructions: Atrial Fibrillation and Atrial Flutter ED Add. Discharge Instructions: Your heart test or not showing signs of acute heart attack or new damage. Continue to take your regular medications to help control your atrial fibrillation. If you are continuing to have intermittent chest pains check back with your mixer lever operator and/or primary care provider as they may need to adjust your sotalol or other medications. All discharge instructions reviewed with patient and/or family. Voiced understanding. CARI POWERS MD Sep 23, 2022 22:32
[2022-09-23 22:45] LABS: INR 1.6 (0.8-1.4); PROTHROMBIN TIME PATIENT 19.7 SEC (12.2-14.7)
[2022-09-23 22:59] LABS: ALANINE AMINOTRANSFERASE 26 U/L (0-55); ALKALINE PHOSPHATASE 88 U/L (40-136); BILIRUBIN,TOTAL 0.4 MG/DL (0.1-1.0); BUN/CREATININE RATIO 13; CALCIUM 8.8 MG/DL (8.5-10.1); CARBON DIOXIDE 19 MMOL/L (21-32); CHLORIDE 101 MMOL/L (98-107); GFR ESTIMATED 31; GLUCOSE 158 MG/DL (70-105); MAGNESIUM 2.4 MG/DL (1.6-2.4); POTASSIUM 4.7 MMOL/L (3.6-5.0); SODIUM 134 MMOL/L (135-145)
[2022-09-23 23:00] LABS: ALBUMIN 3.8 GM/DL (3.2-4.5); TOTAL PROTEIN 7.2 GM/DL (6.4-8.2)
[2022-09-23 23:18] VITALS: BP 139/68
--- NOTE | 2022-09-24 08:23 | Diagnostic Imaging Report ---
EXAMINATION: Chest radiograph, portable AP view. DATE: 09/23/2022 10:26 PM INDICATION: 89-year-old male, chest pain. COMPARISON: May 06, 2021. FINDINGS: There is redemonstrated cardiomegaly. There is no identified pneumothorax. There is no large pleural effusion. There is no identified interval focal airspace consolidation. IMPRESSION: 1. No identified interval acute cardiopulmonary abnormality. Dictated by: Dictated on workstation # [id number]
== END 2022-09-23 23:19 | disposition home or self-care (01) ==
LOC: EDUNIT# 22:08 → ER FS 22:10
DX: I48.0 Paroxysmal atrial fibrillation (principal); I12.9 Hypertensive chronic kidney disease with stage 1 through stage 4 chronic kidney disease, or unspecified chronic kidney disease; N18.9 Chronic kidney disease, unspecified; Z79.01 Long term (current) use of anticoagulants
CPT/HCPCS: 36415; 71045; 80053; 83735; 83880; 84484; 85025; 85610; 85730; 93005; 93041

== ENCOUNTER 2022-11-12 20:02 | Outpatient (CLI) | payer MEDICARE | END 2022-11-13 05:45 | LOC: SLEEP 20:02 | PROVIDERS: ATTEND Nurse Practitioner | DX: G47.31 Primary central sleep apnea (principal); G47.33 Obstructive sleep apnea (adult) (pediatric); G47.10 Hypersomnia, unspecified; R06.83 Snoring | CPT/HCPCS: 95811 ==